=== PATIENT | male | born 1980 | race Caucasian/White ===

== ENCOUNTER 2023-06-04 14:36 | Outpatient (OUT) | payer BC, SELFPAY ==
--- NOTE | 2023-06-04 14:43 | ECG_ITS ---
[facility] Test Date: 2023-06-04 Pat Name: Darnell Myers Department: Room: - Gender: Male Monitor Technician: : 1980 Requested By: FRANCESCA SINHA Order Number: [id number] Reading MD: MARLENY MACIAS Measurements Intervals [place] Rate: 65 P: 55 IA: 184 QRS: 36 QRSD: 129 T: 36 QT: 397 QTc: 414 Interpretive Statements SINUS RHYTHM WITH SINUS ARRHYTHMIA POSSIBLE RIGHT VENTRICULAR CONDUCTION DELAY [RSR (QR) IN V1/V2] No previous ECG available for comparison Electronically Signed On 06-05-2023 5:58:29 EDT by MARLENY MACIAS
[2023-06-04 15:35] LABS: Basophils Percent Auto 0.5 % (0.2-2.0); Eosinophils Absolute Auto 0.1 10^3/uL (0.0-0.7); Eosinophils Percent Auto 1.3 % (0.9-7.0); Hematocrit 40.1 % (42.0-54.0); Hemoglobin 13.6 g/dL (14.0-18.0); Immature Granulocytes Abs Auto 0.03 10^3/uL (0.00-0.03); Immature Granulocytes Pct Auto 0.5 % (0.0-0.5); Lymphocytes Percent Auto 31.8 % (20.5-60.0); Mean Corpuscular HGB Conc 33.9 g/dL (29.9-35.2); Mean Corpuscular Hemoglobin 29.9 pg (25.9-34.0); Mean Corpuscular Volume 88.1 fL (80.0-94.0); Mean Platelet Volume 10.3 fL (9.5-13.5); Monocytes Absolute Auto 0.6 10^3/uL (0.3-0.8); Monocytes Percent Auto 8.8 % (1.7-12.0); Neutrophils Absolute Auto 3.6 10^3/uL (1.4-6.5); Neutrophils Percent Auto 57.1 % (43.0-75.0); Platelet Count 230 10^3/uL (150-450); Red Blood Count 4.55 10^6/uL (4.70-6.10); White Blood Count 6.4 10^3/uL (4.0-11.0)
[2023-06-04 16:06] LABS: Anion Gap 10.7; BUN Creatinine Ratio 16.5; Calcium 8.3 mg/dL (8.5-10.1); Carbon Dioxide 26.2 mmol/L (21.0-32.0); Chloride 105 mmol/L (98-107); Estimated GFR (African America >60 (>=60); Estimated GFR (Non-African Ame >60 (>=60); Glucose 112 mg/dL (74-106); Potassium 3.9 mmol/L (3.5-5.1); Sodium 138 mmol/L (136-145)
[2023-06-04 16:18] LABS: INR 0.98; Partial Thromboplastin Time 33.6 sec (22.3-36.2); Prothrombin Time 10.4 sec (9.0-11.6)
== END 2023-06-04 14:37 | disposition home or self-care (01) ==
LOC: PST 14:40
PROVIDERS: PCP Family Medicine; Visit Provider Urology
DX: Z01.812 Encounter for preprocedural laboratory examination (principal); Z01.810 Encounter for preprocedural cardiovascular examination; R33.9 Retention of urine, unspecified; N40.0 Benign prostatic hyperplasia without lower urinary tract symptoms; R80.9 Proteinuria, unspecified
CPT/HCPCS: 36415; 80048; 85025; 85610; 85730; 93005

== ENCOUNTER 2023-06-11 08:47 | Day surgery (SDC) | payer BC, SELFPAY ==
[2023-06-04 14:53] VITALS: BP 128/71; PULSE 71; RESP 18; TEMP 36.5; O2SAT 95; BMI 40.0
[2023-06-11] VITALS (10 sets, daily range): BP systolic 118–148; BP diastolic 73–97; PULSE 48–64; RESP 14–18; TEMP 36.2–36.4; O2SAT 94–697; BMI 41.7
[2023-06-11] MEDS: LACTATED RINGER'S SOLUTION 1,000 ML 50 ML IV ×2 (09:13→11:17)
[2023-06-11 09:17] LABS: Amphetamine Screen Urine NEGATIVE (NEGATIVE); Barbiturates Screen Urine NEGATIVE (NEGATIVE); Benzodiazepines Screen Urine NEGATIVE (NEGATIVE); Buprenorphine Screen Urine POSITIVE (NEGATIVE); Cannabinoid Screen Urine NEGATIVE (NEGATIVE); Cocaine Screen Urine NEGATIVE (NEGATIVE); Methadone Screen Urine NEGATIVE (NEGATIVE); Methamphetamines Screen Urine NEGATIVE (NEGATIVE); Opiate Screen Urine NEGATIVE (NEGATIVE); Oxycodone Screen Urine NEGATIVE (NEGATIVE); Phencyclidine Screen Urine NEGATIVE (NEGATIVE); Tricyclic Antidepressant Urine NEGATIVE (NEGATIVE)
[2023-06-11] MEDS: CEFAZOLIN SODIUM/DEXTROSE,ISO 1 GM/50 ML IV.SOLN IV (10:47)
--- NOTE | 2023-06-11 11:44 | PM.URSON ---
Urology Surgery Operative Note Operative Note Procedure Date: 06/11/23 Time Out Performed: yes Pre-op Diagnosis: presumed recurrent urethral stricture Post-op Diagnosis: same plus recurrent urethral stricture Procedures performed: #1. Cystoscopy. #2. Optical internal urethrotomy #3.urethral dilation with Doty sounds to 30 [place]. Anesthesia: other (Gen. by LMA) Primary Surgeon: Earnest Doshi Complications: none Estimated blood loss (mL): 10 Findings: recurrent, thick bulbar urethral stricture approximately 1.5-2 cm Specimens: non- Drains: 20 [place] Aguiar catheter Indications for Procedures: this gentleman has a presumed recurrent urethral stricture. He has been on maximal medications and has not obtained much of any benefit from those. Of note is that in 2009 he had a bulbar urethral stricture incised and opened up and he did well since then until the last 6-12 months. He now presents for cystoscopy and possible OIU and UD under anesthesia. He has signed an informed consent after risks were explained to him. Some of these risks include bleeding, infection, anesthesia, urinary incontinence and recurrence to name a few. Detailed description of Procedure: The patient was brought to the operating room and placed on the operating room table in the supine position. SCDs were placed on the lower extremities and turned on and functioning during the entire case. Timeout was done by all parties in the room. We all agreed upon the patient's identification and the planned procedures for this patient. Genn. anesthesia was then administered. The patient was then repositioned into the modified dorsal lithotomy position. All pressure points were satisfactorily padded. Genitalia were sterilely prepped and draped in usual fashion.I started by passing a 22 [place] Olympus cystoscope per urethra and I could clearly see an extremely narrow and somewhat thickened stricture in the bulb of the urethra. I then removed the cystoscope and then passed the urethrotome with a 0 degree lens and a straight knife through the urethra and into the stricture. I then passed a Glidewire through the side-port and cannulated the opening and guided into the bladder. I then was able to extend the knife and cut the stricture in a couple locations in the usual fashion and thus opened it up. It was indurated. It was at least 1-1/2-2 cm in size. I then was able to get the scope into the bladder. An endoscopy in the bladder showed no evidence of any tumors or stones. There was inflammatory debris on the base of the bladder presumedly from incomplete emptying. I brought the scope back to the area of interest and further opened up the stricture without causing bleeding. The guidewire was passed back into the bladder and the scope was removed. I then used the 28 and 30 [place] Doty sound and dilated the area. I then removed the wire and passed a 20 [place] Aguiar catheter into the bladder. 10 mL of fluid was placed in the balloon. It drained clear. He was then transferred to a [facility] bed and wheeled to PACU in stable condition. He'll be discharged to home later today with a prescription for doxycycline 100 mg twice a day for 7 days.
== END 2023-06-11 12:46 | disposition home or self-care (01) ==
PROVIDERS: PCP Family Medicine; Visit Provider Urology
PROC: (CPT 52275; principal; 2023-06-11 09:50)
DX: N35.912 Unspecified bulbous urethral stricture, male (principal); N40.0 Benign prostatic hyperplasia without lower urinary tract symptoms; R33.9 Retention of urine, unspecified; R80.9 Proteinuria, unspecified; Z79.899 Other long term (current) drug therapy; Z68.41 Body mass index [BMI] 40.0-44.9, adult; E66.01 Morbid (severe) obesity due to excess calories
CPT/HCPCS: 52275; 36415; 80307; J2704

== ENCOUNTER 2023-10-13 10:21 | Outpatient (REF) | payer BC, SELFPAY ==
[2023-10-13 11:34] LABS: SARS-CoV-2 Ag NEGATIVE (NEGATIVE)
[2023-10-13 16:03] LABS: SARS-CoV-2 NAA NOT DETECTED (NOT DETECTE)
== END 2023-10-13 10:22 | disposition home or self-care (01) ==
LOC: LAB 10:21
PROVIDERS: PCP Family Medicine; Visit Provider Family Medicine
DX: R05.9 Cough, unspecified (principal); R09.81 Nasal congestion
CPT/HCPCS: 87635; 87811

== ENCOUNTER 2024-01-16 09:21 | Outpatient (OUT) | payer BC, SELFPAY ==
--- OUTSIDE RECORDS SUMMARY | 2024-01-16 09:25 | XMS_ITS | CCD ---
Author Name Unknown Address [address] [place] [address] Organization [facility] Care Team Providers Care Chrome Worker Name Role Phone Marleny Cunningham Primary Care Physician COLLEEN, DR FARMER Admitting Unavailable MARCO ANTONIOY, DR FARMER Attending Unavailable COLLEEN, DR FARMER Primary Care Unavailable MARCO ANTONIOY, DR FARMER Consulting Unavailable HOY, DR FARMER Admitting Unavailable HOY, DR FRAMER Attending Unavailable HOY, DR FARMER Primary Care Unavailable MARCO ANTONIOY, DR FARMER Consulting Unavailable DOSHI, Earnest Ahumada Attending Unavailable DOSHI, Earnest Ahumada Admitting Unavailable DOSHI, Earnest Ahumada Attending Unavailable DOSHI, Earnest Ahumada Attending Unavailable Hoy, Marleny Referring Unavailable DOSHI, Earnest Ahumada Attending Unavailable DOSHI, Earnest Ahumada Attending Unavailable DOSHI, Earnest Ahumada Attending Unavailable DOSHI, Earnest Ahumada Attending Unavailable DOSHI, Earnest Ahumada Referring Unavailable DOSHI, Earnest Ahumada Admitting Unavailable DOSHI, Earnest Ahumada Attending Unavailable Allergies Allergy Classification Reported Allergen(s) Allergy Type Date of Onset Reaction(s) Facility (6 sources) Latex; Translations: [Latex] Allergy to substance Swelling (finding) [facility] Medications Current Medications Medication Drug Class(es) Dates Sig (Normalized) Sig (Original) 24 hr alfuzosin hydrochloride 10 mg extended release oral tablet (1 source) alpha-Adrenergic Odalis Start: 10-21-2022 take 1 tablet by mouth once daily alfuzosin 10 mg ER Tab 10 mg = 1 tab(s), Oral, Daily, # 30 tab(s), Refills(s) 4, Pharmacy: [facility]/pharmacy #[id number], 180, cm, 10/21/22 9:12:00 EST, Height/Length Dosing, 141.5, kg, 10/21/22 9:12:00 EST, Weight Dosing Start Date: 10/21/22 Status: Ordered Suboxone (5 sources) Partial Opioid Agonist, Opioid Antagonist Start: 10-21-2022 Suboxone SubLingual, Daily Start Date: 10/21/22 Status: Ordered dutasteride 0.5 mg oral capsule (1 source) 5-alpha Reductase Inhibitor Start: 03-03-2023 take 1 capsule by mouth once daily dutasteride 0.5 mg Cap 0.5 mg = 1 cap(s), Oral, Daily, # 30 cap(s), Refills(s) 2, Pharmacy: [facility]/pharmacy #[id number], 180, cm, 01/23/23 9:31:00 EST, Height/Length Dosing, 141, kg, 01/23/23 9:31:00 EST, Weight Dosing Start Date: 03/03/23 Status: Ordered Phentermine (5 sources) Sympathomimetic Amine Anorectic Start: 10-21-2022 take 1 mg by mouth once daily Adipex-P mg, Oral, Daily Start Date: 10/21/22 Status: Ordered Problems Active Problems Problem Classification Problem Date Documented Da te Episodic/Chronic Diabetes mellitus without complication (1 source) Hyperglycemia, unspecified; Translations: [HYPERGLYCEMIA UNSPECIFIED] Onset: 11-01-2022 Episodic Genitourinary symptoms and ill-defined conditions (18 sources) Proteinuria; Translations: [Proteinuria, unspecified] Onset: 10-21-2022 Episodic Hyperplasia of prostate (8 sources) Benign prostatic hypertrophy without outflow obstruction; Translations: [Benign prostatic hyperplasia without lower urinary tract symptoms] Onset: 10-21-2022 Chronic Malaise and fatigue (1 source) Other fatigue; Translations: [OTHER FATIGUE] Onset: 11-01-2022 Episodic Other diseases of bladder and urethra (1 source) Urethral stricture; Translations: [Unspecified bulbous urethral stricture, male] Onset: 08-17-2023 Episodic Other screening for suspected conditions (not mental disorders or infectious disease) (1 source) Encounter for screening for malignant neoplasm of prostate; Translations: [Screening for malignant neoplasm done] Onset: 01-23-2023 Episodic Unclassified (3 sources) COUGH, UNSPECIFIED; Translations: [COUGH, UNSPECIFIED] Onset: 05-30-2022 Unclassified (1 source) Male bulbous urethral stricture 08-17-2023 Viral infection (1 source) COVID-19; Translations: [COVID-19] Onset: 05-30-2022 Past or Other Problems Problem Classification Problem Date Documented Da te Episodic/Chronic Unclassified (1 source) COUGH, UNSPECIFIED; Translations: [COUGH, UNSPECIFIED] Onset: 05-27-2022 Results Test Name Value Interpretation Reference Range Facility Patient Educationon 08-17-20 Patient Education Urology Urethrotomy Urethrotomy is a surgery to treat a section of the urethra that is too narrow (urethral stricture). The urethra is the part of the body that drains urine from the bladder out of the body. Urethral stricture makes it difficult or painful to urinate, and it can increase your risk of having more frequent urinary tract infections (UTIs). The goal of surgery is to open the urethral stricture and restore the normal flow of urine. Urethrotomy is performed by passing a thin tube with a light and tiny camera on the end (cystoscope) into the urethra. An instrument is used to cut the stricture, which widens the urethra. Tell a health care provider about: ? Any allergies you have. ? All medicines you are taking, including vitamins, herbs, eye drops, creams, and ckxk-jjy-abituso medicines. ? Any problems you or family members have had with anesthetic medicines. ? Any blood disorders you have. ? Any surgeries you have had. ? Any medical conditions you have. ? Whether you are or may be . What are the risks? Generally, this is a safe procedure. However, problems may occur, including: ? Infection. ? Bleeding. ? Damage to nearby structures or organs. ? Urethral stricture coming back after surgery. ? Inability to get or keep an erection (erectile dysfunction) in men. ? Blood clots. What happens before the procedure? Staying hydrated Follow instructions from your health care provider about hydration, which may include: ? Up to 2 hours before the procedure ? you may continue to drink clear liquids, such as water, clear fruit juice, black coffee, and plain tea. Eating and drinking restrictions Follow instructions from your health care provider about eating and drinking, which may include: ? 8 hours before the procedure ? stop eating heavy meals or foods, such as meat, fried foods, or fatty foods. ? 6 hours before the procedure ? stop eating light meals or foods, such as toast or cereal. ? 6 hours before the procedure ? stop drinking milk or drinks that contain milk. ? 2 hours before the procedure ? stop drinking clear liquids. Medicines Ask your health care provider about: ? Changing or stopping your regular medicines. This is especially important if you are taking diabetes medicines or blood thinners. ? Taking medicines such as aspirin and ibuprofen. These medicines can thin your blood. Do not take these medicines unless your health care provider tells you to take them. ? Taking dmmf-bvd-dggpydy medicines, vitamins, herbs, and supplements. Tests You will have an exam or testing, including: ? A complete physical exam. ? Blood or urine tests. ? X-ray and electrocardiogram, or ECG. General instructions ? Ask your health care provider what steps will be taken to help prevent infection. These may include: ? Washing your genital area with a germ-killing soap. ? Taking antibiotic medicine. ? You may be asked to shower with a germ-killing soap. ? Plan to have someone take you home from the hospital or clinic. ? If you will be going home right after the procedure, plan to have someone with you for 24 hours. What happens during the procedure? ? An IV will be inserted into one of your veins. ? You will be given one or more of the following: ? A medicine to help you relax (sedative). ? A medicine to make you fall asleep (general anesthetic). ? A medicine that is injected into your spine to numb the area below and slightly above the injection site (spinal anesthetic). ? The cystoscope will be inserted into the urethra. ? An incision will be made in the urethral stricture with a knife or a laser. This incision will allow urine to pass through the stricture. ? A thin, flexible tube (catheter) may be inserted through your urethra and into your bladder to hold the incision open while it heals. The catheter will help drain your urine. ? A bandage (dressing) may be placed over the opening of your urethra. The procedure may vary among health care providers and hospitals. What happens after the procedure? ? Your blood pressure, heart rate, breathing rate, and blood oxygen level will be monitored until you leave the hospital or clinic. ? You will continue to have a catheter draining your urine. The catheter may be left in for a few days or weeks, depending on the size of the stricture. ? You will be shown how to care for your catheter. ? You may have some blood leaking from around the catheter when you urinate. ? Do not drive for 24 hours if you were given a sedative during the procedure. ? You may have to wear compression stockings. These stockings help to prevent blood clots and reduce swelling in your legs. Summary ? Urethrotomy is a surgery to treat a section of the urethra that is too narrow (urethral stricture). ? This procedure is done by passing a thin tube with a light and tiny camera on the end (c (more content not included)... Normal [facility] Reminderson 08-17-2023 Reminders - From: Cally Menchaca To: [facility] - Dana Doshi; Cc: Cally Menchaca; Sent: 08/17/2023 17:31:47 EDT Show up: 04/23/2024 17:31:00 EDT Subject: Cysto/UD Due Date/Time: 05/09/2024 17:31:00 EDT Reminder/Recall Patient needs Cysto/UD due in May 2024 Normal [facility] Urology Office/Clinic Noteon 08-17-2023 Urology Office/Clinic Note Chief Complaint BPH HPI Staff 42 yo male here for 2 month f/u to cysto/urethrotomy, UD done 06/11/23. Previous Dx: BPH, incomplete bladder emptying, proteinuria. S/p Cysto done 02/07/10. Pt states that he has had great relief since his procedure. His stream is much better. Dysuria: no Incomplete bladder emptying: no Hematuria: no Frequency: no Urgency: no Nocturia: pt is not getting up now Stream: good no straining Leaking: no Post void dripping: no Wearing pads/ Depends: no Urge incontinence: no Stress incontinence: no Incontinence without Sensory Awareness: no Abdominal pain: pt is having a little discomfort right sided when he stands. He is concerned that he may be getting a hernia. Flank pain: muscle pain Sexual complaints: no History of Present Illness Tests reviewed: reviewed UA, op note I have reviewed the previous health record information and history for this patient from Dr. Doshi. I have reviewed and verified the staff HPI to be accurate for this encounter. There have been no associated fever, chills, flank pain, or blood in the urine. Denies any urinary infections since last encounter. Review of Systems PHQ Score Initial Depression Screen Score: 0 ROS - Provider Constitutional: denies weight loss, denies hot flashes. Eyes: denies eye problems. Gastrointestinal: denies nausea, denies vomiting. Cardiovascular: denies chest pain or angina. Integumentary: no dryness Musculoskeletal: denies musculoskeletal symptoms. ENMT: denies otolaryngeal symptoms. Respiratory: no shortness of breath. Heme/Lymph: denies easy bleeding tendency, denies easy bruising tendency. Psychiatric: no confusion, no anxiety. Genitourinary: See HPI. Physical Exam Vitals & Measurements HR: 63(Peripheral) RR: 16 BP: 138/82 HT: 71 in HT: 180 cm WT: 140 kg WT: 308 lb BMI: 43.21 General Appearance: alert, no distress, well nourished, well developed male. Genitourinary: normal scrotum, normal testes, normal urethra, normal epididymis, normal vas deferens/spermatic cord. Flank Pain: none. Bladder: nonpalpable. Assessment/Plan 1. Bulbous urethral stricture (N35.912: Unspecified bulbous urethral stricture, male) S/p cysto, urethrotomy, UD with Doty sounds 06/11/23. UA today negative for blood and infection. Great relief since procedure, stream is much improved. Previous dilation 2009. Discussed maintenance UD to prevent recurrent strictures. -Pt knows to monitor for recurrent stricture sx and notify office if UD is needed sooner. -Will schedule 1 yr cysto with UD. The procedure risks, benefits, details, and treatment alternatives have been discussed with the patient. These include bleeding, infection, recurrent scar in over 50%, need for repeat dilation or other procedures, no symptom relief with dilation, among others. Full informed consent has been obtained. Will order Local anesthesia. 2. BPH (benign prostatic hyperplasia) (N40.0: Benign prostatic hyperplasia without lower urinary tract symptoms) Stopped taking Dutasteride 0.5 mg qd prior to surgery since there was no improvement in sx. Follow-up With When Contact Information ERNESTINE HEARD, Earnest Ahumada, URL [facility] [address], [place] [address]- [phone] Additional Instructions: Will schedule 1 yr cysto with UD Patient Education Urethrotomy I, Madeline Valente, personally scribed for Dr. Doshi on 08/17/2023 17:27:01. . Documentation recorded by the scribe, Madeline Valente, accurately reflects the services(s) I performed and decisions made by me. Authenticated by Dr. Doshi on 08/17/2023 17:31:22. Problem List/Past Medical History Ongoing BPH (benign prostatic hyperplasia) Bulbous urethral stricture Incomplete bladder emptying Proteinuria Historical No qualifying data Procedure/Surgical History Cystoscopy (06/11/2023), Cystoscopy (02/07/2010). Medications Adipex-P, Oral, Daily dutasteride 0.5 mg Cap, 0.5 mg= 1 cap(s), Oral, Daily, 2 refills Suboxone, SubLingual, Daily Vesicare 10 mg Tab, 10 mg= 1 tab(s), Oral, Daily Allergies Latex (Swelling) Social History Tobacco Never (less than 100 in lifetime) Tobacco Use:. Never Smokeless Tobacco Use:., 10/21/2022 Family History Diabetes mellitus: Father. Hypertension: Father. Primary malignant neoplasm of female breast: Mother. Stroke: Father. Lab Results Ambulatory Point of Care Results Bilirubin Urine Dipstick: Negative (08/17/23 16:38:00) Blood Urine Dipstick: Negative (08/17/23 16:38:00) Glucose Urine Dipstick: Negative (08/17/23 16:38:00) Ketones Urine Dipstick: Negative (08/17/23 16:38:00) Leukocytes Urine Dipstick: Negative (08/17/23 16:38:00) Nitrite Urine Dipstick: Negative (08/17/23 16:38:00) Protein Urine Dipstick: 1+ (30 mg/dl) (08/17/23 16:38:00) Specific [place] Urine Dipstick: 1.025 (08/17/23 16:38:00) Urine Appearance Urine Dipstick: Clear (08/17/23 (more content not included)... Normal [facility] Comment on above: Result Comment: Elec tronically Signed By: Earnest DOSHI MD\.[place]\Date and Time Signed: 08/17/23 17:31 EDT\.br\Electronically Co-Signed By: Madeline Valente\.br\Date and Time Co-Signed: 08/17/23 17:27 EDT Ambulatory Visit Summaryon 0 06-15-2023 Ambulatory Visit Summary ANNA CAN :1980 Visit Date:06/15/2023 Ambulatory Visit Instructions Your Care Team Attending Physician - ERNESTINE HEARD, Earnest Ahumada Primary Care Physician - Marleny Cunningham MD This Is Your Medications List buprenorphine-naloxone (Suboxone) dutasteride (dutasteride 0.5 mg Cap) phentermine (Adipex-P) solifenacin (Vesicare 10 mg Tab) Procedures Performed Cystoscopy (02/07/2010). What to do next Scheduled Follow-Up Appointments Thursday 3:45 PM EDT With: ERNESTINE HEARD, Earnest Ahumada Where: [facility] Lab Reportson 06-12-2023 Lab Reports [id number]#1.00C D:127 Normal [facility] Operative Reporton Operative Report [id number] D:127 [facility] ECG 12-Leadon 06-05-2023 ECG 12-Lead [id number]#1.00C D:127 Normal [facility] Lab Reportson 06-05-2023 Lab Reports [id number] D:127 [facility] Consent for Procedure/Surger yon 06-04-2023 Consent for Procedure/Surgery [id number] D:127 [facility] IntraOperative Documentson 0 06-04-2023 IntraOperative Documents [id number]#1.00C D:127 Normal [facility] Ambulatory Visit Summaryon 0 05-22-2023 Ambulatory Visit Summary ANNA CAN :1980 Visit Date:05/22/2023 Ambulatory Visit Instructions Your Diagnosis BPH (benign prostatic hyperplasia) Incomplete bladder emptying Proteinuria Tests Performed Urnls Dip Stick Auto w/o Microscopy POC [id number] Your Care Team Attending Physician - ERNESTINE HEARD, Earnest Ahumada Primary Care Physician - Marleny Cunningham MD This Is Your Medications List dutasteride (dutasteride 0.5 mg Cap) Contact prescribing physician if questions or concerns buprenorphine-naloxone (Suboxone) phentermine (Adipex-P) Procedures Performed Cystoscopy (02/07/2010). Discharge Vitals Heart Rate (Peripheral) 100 Respiratory Rate 16 Blood Pressure 140/88 Height 180 cm Height 71 in Weight 140 kg Weight 308 lb BMI 43.21 What to do next You Need to Schedule the Following Appointments Follow Up with ERNESTINE HEARD, JACKIE Ty When: Comments: Will schedule procedure Where: [address] [place] [address] Medications What How Much When Instructions Unchanged dutasteride (dutasteride 0.5 mg Cap) 1 Capsules By Mouth Every day Unchanged buprenorphine-naloxone (Suboxone) Sublingual Every day Contact prescribing physician if questions or concerns Unchanged phentermine (Adipex-P) By Mouth Every day Contact prescribing physician if questions or concerns Test Results Urnls Dip Stick Auto w/o Microscopy POC [id number] (05/22/2023) Bilirubin Urine Dipstick - Negative Blood Urine Dipstick - 3+ Large Glucose Urine Dipstick - Negative Ketones Urine Dipstick - Negative Leukocytes Urine Dipstick - Negative Nitrite Urine Dipstick - Negative Protein Urine Dipstick - Trace Specific [place] Urine Dipstick - 1.020 Urine Appearance Urine Dipstick - Clear Urine Color Urine Dipstick - Felicitas Urobilinogen Urine Dipstick - Normal 0.2-1 EU/dl pH Urine Dipstick - 7 Allergies Latex (Swelling) Problems Ongoing - Any problem that you are currently receiving treatment for. BPH (benign prostatic hyperplasia) Incomplete bladder emptying Proteinuria [employer] Benign Prostatic Hyperplasia Benign prostatic hyperplasia (BPH) is an enlarged prostate gland that is caused by the normal aging process. The prostate may get bigger as a man gets older. The condition is not caused by cancer. The prostate is a walnut-sized gland that is involved in the production of semen. It is located in front of the rectum and below the bladder. The bladder stores urine. The urethra carries stored urine out of the body. An enlarged prostate can press on the urethra. This can make it harder to pass urine. The buildup of urine in the bladder can cause infection. Back pressure and infection may progress to bladder damage and kidney (renal) failure. What are the causes? This condition is part of the normal aging process. However, not all men develop problems from this condition. If the prostate enlarges away from the urethra, urine flow will not be blocked. If it enlarges toward the urethra and compresses it, there will be problems passing urine. What increases the risk? This condition is more likely to develop in men older than 50 years. What are the signs or symptoms? Symptoms of this condition include: ? Getting up often during the night to urinate. ? Needing to urinate frequently during the day. ? Difficulty starting urine flow. ? Decrease in size and strength of your urine stream. ? Leaking (dribbling) after urinating. ? Inability to pass urine. This needs immediate treatment. ? Inability to completely empty your bladder. ? Pain when you pass urine. This is more common if there is also an infection. ? Urinary tract infection (UTI). How is this diagnosed? This condition is diagnosed based on your medical history, a physical exam, and your symptoms. Tests will also be done, such as: ? A post-void bladder scan. This measures any amount of urine that may remain in your bladder after you finish urinating. ? A digital rectal exam. In a rectal exam, your health care provider checks your prostate by putting a lubricated, gloved finger into your rectum to feel the back of your prostate gland. This exam detects the size of your gland and any abnormal lumps or growths. ? An exam of your urine (urinalysis). ? A prostate specific antigen (PSA) screening. This is a blood test used to screen for prostate cancer. ? An ultrasound. This test uses sound waves to electronically produce a picture of your prostate gland. Your health care provider may refer you to a specialist in kidney and prostate diseases (urologist). How is this treated? Once symptoms begin, your health care provider will monitor your condition (active surveillance or watchful waiting). Treatment for this condition will depend on the severity of your condition. Treatment may include: ? Observation and yearly exams. This may be the only (more content not included)... Normal [facility] Consent for Procedure/Surger yon 05-22-2023 Consent for Procedure/Surgery [id number] D:127 Normal [facility] Patient Educationon 05-22-20 Patient Education Urology Benign Prostatic Hyperplasia Benign prostatic hyperplasia (BPH) is an enlarged prostate gland that is caused by the normal aging process. The prostate may get bigger as a man gets older. The condition is not caused by cancer. The prostate is a walnut-sized gland that is involved in the production of semen. It is located in front of the rectum and below the bladder. The bladder stores urine. The urethra carries stored urine out of the body. An enlarged prostate can press on the urethra. This can make it harder to pass urine. The buildup of urine in the bladder can cause infection. Back pressure and infection may progress to bladder damage and kidney (renal) failure. What are the causes? This condition is part of the normal aging process. However, not all men develop problems from this condition. If the prostate enlarges away from the urethra, urine flow will not be blocked. If it enlarges toward the urethra and compresses it, there will be problems passing urine. What increases the risk? This condition is more likely to develop in men older than 50 years. What are the signs or symptoms? Symptoms of this condition include: ? Getting up often during the night to urinate. ? Needing to urinate frequently during the day. ? Difficulty starting urine flow. ? Decrease in size and strength of your urine stream. ? Leaking (dribbling) after urinating. ? Inability to pass urine. This needs immediate treatment. ? Inability to completely empty your bladder. ? Pain when you pass urine. This is more common if there is also an infection. ? Urinary tract infection (UTI). How is this diagnosed? This condition is diagnosed based on your medical history, a physical exam, and your symptoms. Tests will also be done, such as: ? A post-void bladder scan. This measures any amount of urine that may remain in your bladder after you finish urinating. ? A digital rectal exam. In a rectal exam, your health care provider checks your prostate by putting a lubricated, gloved finger into your rectum to feel the back of your prostate gland. This exam detects the size of your gland and any abnormal lumps or growths. ? An exam of your urine (urinalysis). ? A prostate specific antigen (PSA) screening. This is a blood test used to screen for prostate cancer. ? An ultrasound. This test uses sound waves to electronically produce a picture of your prostate gland. Your health care provider may refer you to a specialist in kidney and prostate diseases (urologist). How is this treated? Once symptoms begin, your health care provider will monitor your condition (active surveillance or watchful waiting). Treatment for this condition will depend on the severity of your condition. Treatment may include: ? Observation and yearly exams. This may be the only treatment needed if your condition and symptoms are mild. ? Medicines to relieve your symptoms, including: ? Medicines to shrink the prostate. ? Medicines to relax the muscle of the prostate. ? Surgery in severe cases. Surgery may include: ? Prostatectomy. In this procedure, the prostate tissue is removed completely through an open incision or with a laparoscope or robotics. ? Transurethral resection of the prostate (TURP). In this procedure, a tool is inserted through the opening at the tip of the penis (urethra). It is used to cut away tissue of the inner core of the prostate. The pieces are removed through the same opening of the penis. This removes the blockage. ? Transurethral incision (TUIP). In this procedure, small cuts are made in the prostate. This lessens the prostate's pressure on the urethra. ? Transurethral microwave thermotherapy (TUMT). This procedure uses microwaves to create heat. The heat destroys and removes a small amount of prostate tissue. ? Transurethral needle ablation (TUNA). This procedure uses radio frequencies to destroy and remove a small amount of prostate tissue. ? Interstitial laser coagulation (ILC). This procedure uses a laser to destroy and remove a small amount of prostate tissue. ? Transurethral electrovaporization (TUVP). This procedure uses electrodes to destroy and remove a small amount of prostate tissue. ? Prostatic urethral lift. This procedure inserts an implant to push the lobes of the prostate away from the urethra. Follow these instructions at home: ? Take otiu-wah-voowoqr and prescription medicines only as told by your health care provider. ? Monitor your symptoms for any changes. Contact your health care provider with any changes. ? Avoid drinking large amounts of liquid before going to bed or out in public. ? Avoid or reduce how much caffeine or alcohol you drink. ? Give yourself time when you urinate. ? Keep all follow-up visits. This is important. Contact a health care provider if: ? You have unexplained back pain. ? Your symptoms do not get better with treatment. ? You develop side effects from the medicine (more content not included)... Normal [facility] Urology Office/Clinic Noteon 05-22-2023 Urology Office/Clinic Note Chief Complaint possible UD unable to place catheter for urodynamics HPI Staff Pt was scheduled for urodynamics but they were unable to place a urethral catheter in him so the procedure was abandoned. Previous dx of BPH, incomplete b;adder emptying and proteinuria. Pt feels his bladder is functioning fine but he feels he has scar tissue in his urethra again. He states that in 2009 he had a cysto to open up his urethra and was fine for many years after but now he feels he is having those same symptoms. Dysuria: no Incomplete bladder emptying: states he empties but it takes a while Hematuria: no Frequency: every couple of hours Urgency: no Nocturia: 2-3x Stream: some hesitation and has straining all the time Leaking: no Post void dripping: no Urge incontinence: no Stress incontinence: no Incontinence without Sensory Awareness: no Abdominal pain: no Flank pain: no Sexual complaints: no History of Present Illness Tests Reviewed: Reviewed UA. I have reviewed the previous health record information and history for this patient from Dr Doshi I have reviewed and verified the staff HPI to be accurate for this encounter. There have been no associated fever, chills, flank pain, or blood in the urine. Denies any urinary infections since last encounter. Review of Systems PHQ Score Initial Depression Screen Score: 0 ROS - Provider Constitutional: denies weight loss, denies hot flashes. Eyes: denies eye problems. Gastrointestinal: denies nausea, denies vomiting. Cardiovascular: denies chest pain or angina. Integumentary: no dryness Musculoskeletal: denies musculoskeletal symptoms. ENMT: denies otolaryngeal symptoms. Respiratory: no shortness of breath. Heme/Lymph: denies easy bleeding tendency, denies easy bruising tendency. Psychiatric: no confusion, no anxiety. Genitourinary: SEE HPI Physical Exam Vitals & Measurements HR: 100(Peripheral) RR: 16 BP: 140/88 HT: 71 in HT: 180 cm WT: 140 kg WT: 308 lb BMI: 43.21 General Appearance: alert, no distress, well nourished, well developed male. Genitourinary: normal scrotum, normal testes, normal urethra, normal epididymis, normal vas deferens/spermatic cord. Flank Pain: none. Assessment/Plan 1. BPH (benign prostatic hyperplasia) (N40.0: Benign prostatic hyperplasia without lower urinary tract symptoms) Getting up 2-3x/night to void. Unsteady stream. Straining to void. Has tried Alfuzosin 10mg ER in the past-pt stopped taking due to no improvement. Has also tried Tamsulosin 0.4mg 0.4mg BID-pt stopped kiua5yy due to constipation & no improvement in symptoms. P to continue Dutasteride 0.5mg QD therapy given at time of last encounter. 2. Incomplete bladder emptying (R33.9: Retention of urine, unspecified) Unable to insert catheter at time of URO's. Procedure terminated. S/P Cysto/UD 02/07/10. Unable to obtain records due to new EMR system. Discussed possibility of scar tissue collection over time creating stricture. Discussed scheduling Cysto/OIU/UD with Anesthesia. The risks and benefits for cystoscopy/OIU possible UD have been discussed. The risks include bleeding, infection, and irritation of the bladder and urinary channel, among others. The patient, after being informed of procedural details and after questions have been answered, wishes to proceed. Full informed consent has been obtained. Will order General anesthesia. 3. Proteinuria (R80.9: Proteinuria, unspecified) UA today shows TRACE. Has been recommended to discuss with PCP. Follow-up With When Contact Information ERNESTINE HEARD, Earnest Ahumada, URL [address] [place] [address] [place] [address] Additional Instructions: Will schedule procedure Patient Education Benign Prostatic Hyperplasia I, Margaret Murcia, personally scribed for Dr. Doshi on 05/22/2023 10:32:17. . Documentation recorded by the scribe, Margaret Murcia, accurately reflects the services(s) I performed and decisions made by me. Authenticated by Dr. Doshi on 05/22/2023 10:33:52. Problem List/Past Medical History Ongoing BPH (benign prostatic hyperplasia) Incomplete bladder emptying Proteinuria Historical No qualifying data Procedure/Surgical History Cystoscopy (02/07/2010). Medications Adipex-P, Oral, Daily dutasteride 0.5 mg Cap, 0.5 mg= 1 cap(s), Oral, Daily, 2 refills, Not taking: Pt was told to stop taking it for the urodynamics test and he states that he did and is no longer going to take it because he feels the issue is not his prostate. Suboxone, SubLingual, Daily Allergies Latex (Swelling) Social History Tobacco Never (less than 100 in lifetime) Tobacco Use:. Never Smokeless Tobacco Use:., 10/21/2022 Family History Diabetes mellitus: Father. Hypertension: Father. Primary malignant neoplasm of female breast: Mother. Stroke: Father. Lab Results Test Name Test Result Date/Time Comments PSA Total 0.4 ng/ (more content not included)... [facility] Comment on above: Result Comment: Elec tronically Signed By: ERNESTINE HEARD, Earnest Ahumada\.br\Date and Time Signed: 05/22/23 10:33 EDT\.br\Electronically Co-Signed By: Margaret Murcia MA\.br\Date and Time Co-Signed: 05/22/23 10:32 EDT Consent for Treatmenton 04-24 Consent for Treatment [id number]#[id number] D:127 [facility] Pre-Certification Formon Pre-Certification Form [id number]#[id number] CD:127 [facility] Lab Reportson 02-02-2023 Lab Reports [id number]#1.00C D:127 [facility] Coding Summary.on 01-30-2023 Coding Summary. CD:[id number] Gh0 bWw+PGhlYWQ+ID3DEVGcH06 bsIMrhS4zJ6RDNPyVSszgWI AFUIjIJrKtmjXzHN1iiVWfM XJu IC8+HE5xIKCyPqiyuALgf4X 5tTS1Z77mfx3aOFuwqWM8DG YqBpRafwrls9ehnSc2WKeuB mluOyBt PRJppU86OCC3bY55Th99iVK zmNSuq9nccPi3ImKjKZCkRB S1iEyeQJond9VuYVHmV39cc QRjv9H2 JEDofXzhzJDhCfYtiUO7nS7 fFEeqspusi5qjsjurLqa6ea 60uLSwf4K5cAN4V4CkkyA1L GJvbGQg CgthtLZAfP7rgxbaw4gejkl sMxHhIWOxWYf4AMx7EJBzpQ ebBfEwDQ38STU5OCGwloFyL 2FsLWFs hWrsIvL7t2X8Ok9WV7ESOib gP3WCIZREISomxLP+PC90cj 92M4IvEodfZqv4FVSmZUA7d JA8hC9n VYSbPWymy7B8gVD5A1KlisS fgd8rl7bcHSDzZDniS99rzB Cxp3H2GOCsnNL8CCTgtBypT iBzaG93 Oyc+ITLfyXgss9PiAmgfv3v uy6spyJo4OmhwDQKzejVahG riSLJ0r3OsFp8kSEAgxOC2u IO6vO5c RdXwHxQ3DDnzW257WpEnxSH zAxpnY25kD7FslNM+PHRyPj o8KBWdpZppYS0mS4LjGURdf mctbGVm yGeoVF0lYRNaxmqoKXYagI6 mUWHdW7w9ScKsFwJ7XUbsB4 GxAXSmanvuGg91gL4bUlOuJ xO2MZvl K7NxitP3SXUekIPnVLdsYWK 9K36xi8G0BNBwZOGvIMO5zQ U6fL7piBndqbkafCXhiGufg mVydGlj WEkeKSjeT138NJMsvCjpHmD vZGluZyBEYXRlOiAgMDMvMT AvMjAyMzwvdGQ+ICXdTVN3t WxlPSAn uFHeNRonEc5igHufpZcgVZ1 kAEJlfwplGETttD9iYTHlcU NlaSujQN6aBFEgixldq231J iAxMHB0 PELwaRPoY6OviQ8aPtXrRLR bEKPnX9KefFMrXGmnV049GD elCrH8OIFigrGfA1ZvBZPtk WduOiB0 w0S8Au3Wu0MipftiH7LprTL bYmSbWungPAu2G9GlOqhcvW I+MM90HISjNL36ZLe0IAY7x WxlPSdi YLLdN6WuuN2nRmUqXTIaOCB kOyc+PHRhYmxlIHdpZHRoPS duBXBaOrJfsQxyXW3cBw3gJ GVyLWNv eJhapJWuOaBnw4lqYSSnCYl zOW5pqMcxU7QhtHS2YYSsl3 s8Sw76X92pM8DdzAH+PGNvb EH8gMB0 kX3wNaJzPoP1BVavJ948IaW itPIsRcujm5pij9xjfUn6Jz V7JTQgtvWuxAkeZXP9d9SsC d08I10a IHdpZHRoPSIxNSUiIHZhbGl soi9zpT1jTq1+YEAsrSZ3lG N9hB1aTvFaMjI8YUolO041Z nRvcCIv Sydeg1cnt8inwCy2JtSuPFN czwIptTceOCC6u4SwSh62K6 JrnKhxd8CuEmq3vo56uRBzl 4A3gKU2 M0YjCAYbiuykoXHskGmqFQ1 cXTRlvvacOFMicI7dHIJnJ7 o3DvViKtK1UJkcF0KjccH6B GJvbGQg QWMmdBWPkU2iedgpp6texbi vHrFmQCAsHHm8KVq5WBEpeE jkTwZuGVD2RjJ7WLT7dDOib T0dlWcc xvloeI6yEbi+LCX2fUPuyWX DVK6fHyubzJM+RXOeLMV9sY dmGYepUFYdwA3hUJOnD8o8N iAwLjA1 LTllQ7ZmpaN7NCIhtIDrBTS oyENXcG1difxud6cvsnsfNr TxVKJlBRr3RXw1KBTnqRhqA iBsZWZ0 ZuE8TQE0rXRwhG1mqTxpazo hgQ5hDzf+OdmqtSxqRYC2HF r5D5CxXam3DBTswOloUI2wi GFkZGlu Fy1spKsxpCuvQO9qKMInvnp fv197CePuu8dwGDBuiJYiVW kgUGV4S95oc4V2GYLhIQDzZ VU5zIP4 nK7zmCezgnfwxZKpaFioabY hnEwcRGthMIupE978TQDahM xqLuGsIOe7J0XwDhx0CGFby AixRP4b aJVgYUdbFx0thPnsmFqtYZ6 lTDPlcdyjk316GwHpb4auFU YcsMOzSNdwTOK8A87zw5X2F CMwMDAw NCF7sFJ4yS8acOclxfzhdGR mdDsgdmVydGljYWwtYWxpZ2 34RGEtrWsqWbFqgVo9V9NtJ ql5HGFu uNbqMA9umPTfWZvaSd3rpSg jnLybON8uIRYwtrlxz695Dt Azm6kdSYJzaBTkSDheASN7L 05he2T8 WBVcUCWgEUQ6tTK3pK4ieQy nbjogbGVmdDsgdmVydGljYW wbPBgkQ369QGJauJlwZlQhj GllbnQg DQgkRWz2Z6BrYftovXA+PC9 6CTPqLU42jUDmpFXcj3qdjG u3YgJiLTOxTMJ3lEdmSFebs 3JkZXIt T05zhHJkz7W0FAMofRlbiOQ uPzVuhHH3aH5yASbmhykim9 oqgsaaDqnmi3kkmz33bW22I 29sIHdp ZHRoPSIzMCUiIHZhbGlnbj0 sjX8xTe2+MXQndRO7gNF8jP 3wDIOjGeC4YNtcD002AeBna CIvPjxj u5eyi6iwvMb1LuF7KPMdhvF jwHdaVSZ5g6FaLg00V75iRD dpZHRoPSIyMCUiIHZhbGlnb v1fyY9b Ii8+UHKkvUU9wQR7hD1oYlE qGqF7CGzhZ606LqMbyMQyPm auK37vS2YurPH+TCYhBms9B CBzdHls VL6zeMEgWVrdDl4tYPN1AtL oBoAdHHfeY8FnQRDeqbmglh wvpWO8FEDgSODhqK83Hi6do DogMTBw mGYXxR2fcunup2hmfuilYgS mLNUjALf4JEn5KIMrkMadHl NdRJX9KxN4XAC8mKVyoB1td Glnbjog xL8lQ7JdYISnhcfvHw65rG0 oGpFxSmN9VVfdMbe+Q0xBUF LaOO7IQ7aVVOVRPUO2E7UsS ha4IRWg gEdzVR3xyNMaVQnsYv4hqPr kwDvjCF4oZQSjuoxvCGFfqX 3eNBRlfGUfcAzxWA0rENKsk vros410 BxNyNAG8VSVbdJWjT5ZmtI3 gVmThCQIqHGWyS8DusXGnEO gfD493JMcwGcO9DXTfxjKnF 2FsLWFs kZsbVoZ9y1S6Vb7tMb6sNE5 zJCnlCY10KW44aWVch6O4gI K3B0FaGFUkcubdssywrDW9X DAuMDUw uG63vEPoUUwiNz5ji0P4s59 3JDAgHWZiyY21Dl0fcYvpOX MdtMYPnZ7nphzts1mulozgN zAwMDAw YWc6CHx3SJJupMtyIrGnJPA 8FfD6PCX6nRPsyY7vjAvhvj hjoX0zMtk+ILNdYAWtwmZ4A 4OmOof0 LKLesHklUR0icYCtJFzcAx5 gpOgolBuwYJ1lNGQsqnpzPL UclO7wWTBzgWCohQpiVL8rX TBpbjtm g155HwVbDNM0MHNalQWiI5T rbW6xFvLwMTMsEXQzX3LgfT QjHVabB983GNmeTpN3VAYig hKtF5Bp MGBkrNipBxW8x1Q9Aq9FJGy zUJ04AI79pWIfm7V7sTF7G3 NzJTMhgufhvaamgNF5HMFwK DUwaW47 qSHfYMjzTg4am4L6p712PBF kDRLjsW48Bh6nhTdhMZTcqO YUsH9czygvf0djtwqzCjLvY DAwMDt0 ODd5NWIuwEwpWsMbUVI8RsD 6WHH6oUEsxL8ggTmoccgifF 9wOyc+ZLVpXQFek5Sbv1IlG V51XG41 H6DxHkshmAAbrDG+PHRhYmx lIHdpZHRoPScxMDAlJyBzdH ysLT7zUi5vVQLqELMlfRqgr HNlOiBj b0viRTAhDCfqQD0dqUywO2T ejZV0FUJcf7h2Ka76Y39dA9 JvdXA+XHVesOB1oVN7vQ8iG zAlIiB2 MByqJ231XqUmpVQjHxbom1q gg8jbvZh4UsXuJVHwyiZqcF gtOYS2s5TiRd20L08hSVzjY HRoPSIy KBKlYLZwnDiwsd1qsD5qQx4 +XOUpgHL3fZF8cZ1mAnDmKx V3MCoiQ773VcVcvQRrVuozD 88cK2Xt dXA+PLPnFow5PWTnpCnbTE7 zzVAlAWzpIl2gXOD6NyMkZm KuMWwoJ2YfRBUyhnyklynnq DA6WHCm UFLlwM25Kr7owCemQd5sEGF iKVM6SCVnuSVuM7CkqR5hYn WiSTSfNFPiA7ZfjBUvEIpeM 246IGxl DsH9JUQhobBiM3XxPARkyTj yOuT1q1B5Nd4LtDkdcYDjFR 0nFuMaNJh3W6EmHtw4HCKtd MnmNF9g xICuLLksGx8fwKukaJwdZR0 uZHHbyntsh222FkSge0hpES DhiTQjDZkiSMQ7C44ov9S5I CMwMDAw FUL4rKD3dQ5deUmtxohtvOM mdDsgdmVydGljYWwtYWxpZ2 97GORlzMarLfBBCcm5H1RuM ns1ALAz iWgzON8boKQcINbnCx2hwNb tgRdeTH9hGEImiglbl561Am Jhh0rzYYXwdHYnDKidJOF4D 79gh5L0 MLHhWKMaGNT4gUJ0gN7psHk nbjogbGVmdDsgdmVydGljYW kqPKgpF424HPPjhGexYa5HC vv8I0Bp Lws1TDWeqPjpUY8bgUPsSCh pWl8ulDmveZgdBS7gHYAqfp sqn393YbOld5lfHHOpqTEwN GltZXM7 W46vg5I8GELbTNYnHXP9cJC 7rO0soDzklazkwAHcsPodpx SutXqbRTnkMYwjB507DDUpd DsnPlBh eWVyOjwvdGQ+DO32re51N4B qWnczYbu9CUXeYON4gBO1tI 5bSXDoWAxoq0T3uJA7O8Zaa cYdqc3y b2xs (more content not included)... Normal [facility] Ambulatory Visit Summaryon 0 01-23-2023 Ambulatory Visit Summary ANNA CAN :1980 Visit Date:01/23/2023 Ambulatory Visit Instructions Your Diagnosis BPH (benign prostatic hyperplasia) Incomplete bladder emptying Proteinuria Prostate cancer screening Tests Performed Urnls Dip Stick Auto w/o Microscopy POC 17392 Your Care Team Attending Physician - ERNESTINE HEARD, Earnest Ahumada Primary Care Physician - Marleny Cunningham MD This Is Your Medications List Contact prescribing physician if questions or concerns buprenorphine-naloxone (Suboxone) phentermine (Adipex-P) [Image Removed: STOP]Stop taking these medications alfuzosin (alfuzosin 10 mg ER Tab) tamsulosin (tamsulosin 0.4 mg Cap) Discharge Vitals Heart Rate (Peripheral) 80 Respiratory Rate 16 Blood Pressure 140/88 Height 180 cm Height 71 in Weight 141 kg Weight 310.2 lb BMI 43.52 What to do next Scheduled Follow-Up Appointments Thursday 10:30 AM EDT Where: [facility] Thursday 3:00 PM EDT Where: [facility] You Need to Schedule the Following Appointments Follow Up with ERNESTINE HEARD, Earnest Ahumada, JACKIE When: Where: [address] [place] [address]- Medications What How Much When Instructions Unchanged buprenorphine-naloxone (Suboxone) Every day Contact prescribing physician if questions or concerns Unchanged phentermine (Adipex-P) Every day Contact prescribing physician if questions or concerns What How Much When Comments Stop Taking alfuzosin (alfuzosin 10 mg ER Tab) 1 Tablets By Mouth Every day Stop Taking tamsulosin (tamsulosin 0.4 mg Cap) 1 Capsules By Mouth 2 times a day Test Results Urnls Dip Stick Auto w/o Microscopy POC 09408 (01/23/2023) Bilirubin Urine Dipstick - Negative Blood Urine Dipstick - Negative Glucose Urine Dipstick - Negative Ketones Urine Dipstick - Negative Leukocytes Urine Dipstick - Negative Nitrite Urine Dipstick - Negative Protein Urine Dipstick - 1+ (30 mg/dl) Specific [place] Urine Dipstick - 1.020 Urine Appearance Urine Dipstick - Clear Urine Color Urine Dipstick - Yellow Urobilinogen Urine Dipstick - Normal 0.2-1 EU/dl pH Urine Dipstick - 7.5 Allergies Latex (Swelling) Problems Ongoing - Any problem that you are currently receiving treatment for. BPH (benign prostatic hyperplasia) Incomplete bladder emptying Proteinuria [employer] Benign Prostatic Hyperplasia Benign prostatic hyperplasia (BPH) is an enlarged prostate gland that is caused by the normal aging process and not by cancer. The prostate is a walnut-sized gland that is involved in the production of semen. It is located in front of the rectum and below the bladder. The bladder stores urine and the urethra is the tube that carries the urine out of the body. The prostate may get bigger as a man gets older. An enlarged prostate can press on the urethra. This can make it harder to pass urine. The build-up of urine in the bladder can cause infection. Back pressure and infection may progress to bladder damage and kidney (renal) failure. What are the causes? This condition is part of a normal aging process. However, not all men develop problems from this condition. If the prostate enlarges away from the urethra, urine flow will not be blocked. If it enlarges toward the urethra and compresses it, there will be problems passing urine. What increases the risk? This condition is more likely to develop in men over the age of 50 years. What are the signs or symptoms? Symptoms of this condition include: ? Getting up often during the night to urinate. ? Needing to urinate frequently during the day. ? Difficulty starting urine flow. ? Decrease in size and strength of your urine stream. ? Leaking (dribbling) after urinating. ? Inability to pass urine. This needs immediate treatment. ? Inability to completely empty your bladder. ? Pain when you pass urine. This is more common if there is also an infection. ? Urinary tract infection (UTI). How is this diagnosed? This condition is diagnosed based on your medical history, a physical exam, and your symptoms. Tests will also be done, such as: ? A post-void bladder scan. This measures any amount of urine that may remain in your bladder after you finish urinating. ? A digital rectal exam. In a rectal exam, your health care provider checks your prostate by putting a lubricated, gloved finger into your rectum to feel the back of your prostate gland. This exam detects the size of your gland and any abnormal lumps or growths. ? An exam of your urine (urinalysis). ? A prostate specific antigen (PSA) screening. This is a blood test used to screen for prostate cancer. ? An ultrasound. This test uses sound waves to electronically produce a picture of your prostate gland. Your health care provider may refer you to a specialist in kidney (more content not included)... Normal [facility] Ambulatory Visit Summary ANNA CAN :1980 Visit Date:01/23/2023 Ambulatory Visit Instructions Your Diagnosis BPH (benign prostatic hyperplasia) Incomplete bladder emptying Proteinuria Tests Performed Urnls Dip Stick Auto w/o Microscopy POC 13606 Your Care Team Attending Physician - Earnest DOSHI MD Primary Care Physician - Marleny Cunningham MD This Is Your Medications List Contact prescribing physician if questions or concerns buprenorphine-naloxone (Suboxone) phentermine (Adipex-P) [Image Removed: STOP]Stop taking these medications alfuzosin (alfuzosin 10 mg ER Tab) tamsulosin (tamsulosin 0.4 mg Cap) Discharge Vitals Heart Rate (Peripheral) 80 Respiratory Rate 16 Blood Pressure 140/88 Height 180 cm Height 71 in Weight 141 kg Weight 310.2 lb BMI 43.52 What to do next You Need to Schedule the Following Appointments Follow Up with ERNESTINE HEARD, JACKIE Ty When: Where: [address] [place] [address]- Medications What How Much When Instructions Unchanged buprenorphine-naloxone (Suboxone) Every day Contact prescribing physician if questions or concerns Unchanged phentermine (Adipex-P) Every day Contact prescribing physician if questions or concerns What How Much When Comments Stop Taking alfuzosin (alfuzosin 10 mg ER Tab) 1 Tablets By Mouth Every day Stop Taking tamsulosin (tamsulosin 0.4 mg Cap) 1 Capsules By Mouth 2 times a day Test Results Urnls Dip Stick Auto w/o Microscopy POC 05636 (01/23/2023) Bilirubin Urine Dipstick - Negative Blood Urine Dipstick - Negative Glucose Urine Dipstick - Negative Ketones Urine Dipstick - Negative Leukocytes Urine Dipstick - Negative Nitrite Urine Dipstick - Negative Protein Urine Dipstick - 1+ (30 mg/dl) Specific [place] Urine Dipstick - 1.020 Urine Appearance Urine Dipstick - Clear Urine Color Urine Dipstick - Yellow Urobilinogen Urine Dipstick - Normal 0.2-1 EU/dl pH Urine Dipstick - 7.5 Allergies Latex (Swelling) Problems Ongoing - Any problem that you are currently receiving treatment for. BPH (benign prostatic hyperplasia) Incomplete bladder emptying Proteinuria [employer] Benign Prostatic Hyperplasia Benign prostatic hyperplasia (BPH) is an enlarged prostate gland that is caused by the normal aging process and not by cancer. The prostate is a walnut-sized gland that is involved in the production of semen. It is located in front of the rectum and below the bladder. The bladder stores urine and the urethra is the tube that carries the urine out of the body. The prostate may get bigger as a man gets older. An enlarged prostate can press on the urethra. This can make it harder to pass urine. The build-up of urine in the bladder can cause infection. Back pressure and infection may progress to bladder damage and kidney (renal) failure. What are the causes? This condition is part of a normal aging process. However, not all men develop problems from this condition. If the prostate enlarges away from the urethra, urine flow will not be blocked. If it enlarges toward the urethra and compresses it, there will be problems passing urine. What increases the risk? This condition is more likely to develop in men over the age of 50 years. What are the signs or symptoms? Symptoms of this condition include: ? Getting up often during the night to urinate. ? Needing to urinate frequently during the day. ? Difficulty starting urine flow. ? Decrease in size and strength of your urine stream. ? Leaking (dribbling) after urinating. ? Inability to pass urine. This needs immediate treatment. ? Inability to completely empty your bladder. ? Pain when you pass urine. This is more common if there is also an infection. ? Urinary tract infection (UTI). How is this diagnosed? This condition is diagnosed based on your medical history, a physical exam, and your symptoms. Tests will also be done, such as: ? A post-void bladder scan. This measures any amount of urine that may remain in your bladder after you finish urinating. ? A digital rectal exam. In a rectal exam, your health care provider checks your prostate by putting a lubricated, gloved finger into your rectum to feel the back of your prostate gland. This exam detects the size of your gland and any abnormal lumps or growths. ? An exam of your urine (urinalysis). ? A prostate specific antigen (PSA) screening. This is a blood test used to screen for prostate cancer. ? An ultrasound. This test uses sound waves to electronically produce a picture of your prostate gland. Your health care provider may refer you to a specialist in kidney and prostate diseases (urologist). How is this treated? Once symptoms begin, your health care provider will monitor your condition (active surveillance or watchful waiting). Treatment for this condition will depend on the kelly (more content not included)... Normal [facility] CHEMISTRYOrdered By: SYSTEM SYSTEM on 01-23-2023 Prostate specific Ag [Mass/Vol] 0.4 ng/mL Normal 0.1 - 3.5 ng/mL [facility] Remisol PSA Totalon 01-23-2023 Prostate specific Ag [Mass/Vol] 0.4 ng/mL Normal 0.1-3.5 [facility] Comment on above: Result Comment: The concentration of PSA determined by different manufacturers can vary due to differences in assay methods and reagent specificity. Values obtained from different assay methods cannot be used interchangeably. The methodology used for this result was chemiluminescence using [employer]'s Access [employer] PSA reagent. Performed By: #### 1 [id number] ####[facility] [id number] [place] [address] Patient Educationon 01-24-20 23 Patient Education Urology Benign Prostatic Hyperplasia Benign prostatic hyperplasia (BPH) is an enlarged prostate gland that is caused by the normal aging process and not by cancer. The prostate is a walnut-sized gland that is involved in the production of semen. It is located in front of the rectum and below the bladder. The bladder stores urine and the urethra is the tube that carries the urine out of the body. The prostate may get bigger as a man gets older. An enlarged prostate can press on the urethra. This can make it harder to pass urine. The build-up of urine in the bladder can cause infection. Back pressure and infection may progress to bladder damage and kidney (renal) failure. What are the causes? This condition is part of a normal aging process. However, not all men develop problems from this condition. If the prostate enlarges away from the urethra, urine flow will not be blocked. If it enlarges toward the urethra and compresses it, there will be problems passing urine. What increases the risk? This condition is more likely to develop in men over the age of 50 years. What are the signs or symptoms? Symptoms of this condition include: ? Getting up often during the night to urinate. ? Needing to urinate frequently during the day. ? Difficulty starting urine flow. ? Decrease in size and strength of your urine stream. ? Leaking (dribbling) after urinating. ? Inability to pass urine. This needs immediate treatment. ? Inability to completely empty your bladder. ? Pain when you pass urine. This is more common if there is also an infection. ? Urinary tract infection (UTI). How is this diagnosed? This condition is diagnosed based on your medical history, a physical exam, and your symptoms. Tests will also be done, such as: ? A post-void bladder scan. This measures any amount of urine that may remain in your bladder after you finish urinating. ? A digital rectal exam. In a rectal exam, your health care provider checks your prostate by putting a lubricated, gloved finger into your rectum to feel the back of your prostate gland. This exam detects the size of your gland and any abnormal lumps or growths. ? An exam of your urine (urinalysis). ? A prostate specific antigen (PSA) screening. This is a blood test used to screen for prostate cancer. ? An ultrasound. This test uses sound waves to electronically produce a picture of your prostate gland. Your health care provider may refer you to a specialist in kidney and prostate diseases (urologist). How is this treated? Once symptoms begin, your health care provider will monitor your condition (active surveillance or watchful waiting). Treatment for this condition will depend on the severity of your condition. Treatment may include: ? Observation and yearly exams. This may be the only treatment needed if your condition and symptoms are mild. ? Medicines to relieve your symptoms, including: ? Medicines to shrink the prostate. ? Medicines to relax the muscle of the prostate. ? Surgery in severe cases. Surgery may include: ? Prostatectomy. In this procedure, the prostate tissue is removed completely through an open incision or with a laparoscope or robotics. ? Transurethral resection of the prostate (TURP). In this procedure, a tool is inserted through the opening at the tip of the penis (urethra). It is used to cut away tissue of the inner core of the prostate. The pieces are removed through the same opening of the penis. This removes the blockage. ? Transurethral incision (TUIP). In this procedure, small cuts are made in the prostate. This lessens the prostate's pressure on the urethra. ? Transurethral microwave thermotherapy (TUMT). This procedure uses microwaves to create heat. The heat destroys and removes a small amount of prostate tissue. ? Transurethral needle ablation (TUNA). This procedure uses radio frequencies to destroy and remove a small amount of prostate tissue. ? Interstitial laser coagulation (ILC). This procedure uses a laser to destroy and remove a small amount of prostate tissue. ? Transurethral electrovaporization (TUVP). This procedure uses electrodes to destroy and remove a small amount of prostate tissue. ? Prostatic urethral lift. This procedure inserts an implant to push the lobes of the prostate away from the urethra. Follow these instructions at home: ? Take gxaq-qwy-hullbfe and prescription medicines only as told by your health care provider. ? Monitor your symptoms for any changes. Contact your health care provider with any changes. ? Avoid drinking large amounts of liquid before going to bed or out in public. ? Avoid or reduce how much caffeine or alcohol you drink. ? Give yourself time when you urinate. ? Keep all follow-up visits as told by your health care provider. This is important. Contact a health care provider if: ? You have unexplained back pain. ? Your symptoms do not get better with treatment. ? You d (more content not included)... Normal [facility] U[facility] Office/Clinic Noteon 01-23-2023 Urology Office/Clinic Note Chief Complaint 3 month f/u HPI Staff 3 month f/u. Previous dx of BPH, proteinuria, and incomplete bladder emptying. Pt stopped taking the Alfuzosin after about a month of taking it due to not getting any relief from it and called the office and was started on Tamsulosin 0.4mg BID. He also stopped taking the Tamsulosin. Pt has not been taking it for at the least 2 weeks now. States that it was causing constipation and not giving him the relief that he wanted. Dysuria: no Incomplete bladder emptying: pt states that he is emptying but it takes him a while because of a slow stream Hematuria: no Frequency: every 2-3 hours Urgency: no Nocturia: rare Stream: slight hesitation when starting stream and has straining all the time. Slow weak stream Leaking: no Post void dripping: a little Wearing pads/ Depends: no Urge incontinence: no Stress incontinence: no Incontinence without Sensory Awareness: no Abdominal pain: no Flank pain: no Sexual complaints: no History of Present Illness Tests reviewed: reviewed UA. I have reviewed the previous health record information and history for this patient from Dr. Doshi. I have reviewed and verified the staff HPI to be accurate for this encounter. There have been no associated fever, chills, flank pain, or blood in the urine. Denies any urinary infections since last encounter. Review of Systems PHQ Score Initial Depression Screen Score: 0 ROS - Provider Constitutional: denies weight loss, denies hot flashes. Eyes: denies eye problems. Gastrointestinal: denies nausea, denies vomiting. Cardiovascular: denies chest pain or angina. Integumentary: no dryness Musculoskeletal: denies musculoskeletal symptoms. ENMT: denies otolaryngeal symptoms. Respiratory: no shortness of breath. Heme/Lymph: denies easy bleeding tendency, denies easy bruising tendency. Psychiatric: no confusion, no anxiety. Genitourinary: denies dysuria, denies hematuria, denies discharge, denies urinary frequency, denies urinary hesitancy, denies nocturia, denies incontinence, denies genital sores, denies decreased libido, and denies erectile dysfunction. Physical Exam Vitals & Measurements HR: 80(Peripheral) RR: 16 BP: 140/88 HT: 71 in HT: 180 cm WT: 141 kg WT: 310.2 lb BMI: 43.52 General Appearance: alert, no distress, well nourished, well developed male. Genitourinary: normal scrotum, normal testes, normal urethra, normal epididymis, normal vas deferens/spermatic cord. Flank Pain: none. Bladder: nonpalpable. Assessment/Plan 1. BPH (benign prostatic hyperplasia) (N40.0: Benign prostatic hyperplasia without lower urinary tract symptoms) S/p Cysto 02/07/10. Pt. initially started on Alfuzosin 10mg ER daily at last encounter. Took for a month and d/c due to not noticing much improvement. Shares the only thing it helped with was getting his stream started. Pt. called the office and then was started on Tamsulosin 0.4mg BID. Pt. also stopped taking Flomax. Shares it was causing him constipation and not giving him the relief he desired. Pt. shared that he has a slow stream when voiding in a public bathroom and states it is embarrassing for him. Feels it is due to his mental state. If he voids when no one is around he feels he can completely empty and has no issues. Biggest complaint is having a weak stream. Discussed trying Finasteride but understands this specific medication takes at least 6 months to take effect. Pt. mentioned having his PSA checked. Denies family history of prostate cancer. Pt. wishes to have PSA drawn in office today. Pt. to be called with results. 2. Incomplete bladder emptying (R33.9: Retention of urine, unspecified) See #1. Discussed scheduling Urodynamics. Pt. wishes to move forward with bladder function testing. 3. Proteinuria (R80.9: Proteinuria, unspecified) 30mg/dL per today's UA. Recommended pt. at last visit to see his primary care regarding proteinuria. Follow-up With When Contact Information ERNESTINE HEARD, Earnest Ahumada, [address] [place] [address]- Additional Instructions: Schedule Urodynamics Patient Education Benign Prostatic Hyperplasia I, Sofia Lynn, personally scribed for Dr. Doshi on 01/23/2023 10:22:05. . Documentation recorded by the scribe, Sofia Lynn, accurately reflects the services(s) I performed and decisions made by me. Authenticated by Dr. Dohsi on 01/23/2023 10:25:30. Problem List/Past Medical History Ongoing BPH (benign prostatic hyperplasia) Incomplete bladder emptying Proteinuria Historical No qualifying data Medications Adipex-P, Oral, Daily, Not taking: Stopped 2 months ago alfuzosin 10 mg ER Tab, 10 mg= 1 tab(s), Oral, Daily, 4 refills, Not taking: no relief Suboxone, SubLingual, Daily tamsulosin 0.4 mg Cap, 0.4 mg= 1 cap(s), Oral, BID, 11 refills, Not taking: pt was not getting much relief so he did not have this refilled. (more content not included)... Normal [facility] Comment on above: Result Comment: Elec tronically Signed By: Earnest DOSHI MD\.br\Date and Time Signed: 01/23/23 10:25 EST\.br\Electronically Co-Signed By: Sofia Lynn.br\Date and Time Co-Signed: 01/23/23 10:22 EST CBC AUTO DIFFon 10-25-2022 BASO # 0.0 103/ul Normal 0.0-0.1 [facility] Comment on above: Performed By: #### C BC #### [facility] [address] [address] [address] Mary Lou Harmon Basophils/100 WBC (Bld) 0.4 % Normal 0.2-2.0 [facility] Comment on above: Performed By: #### C BC #### [facility] [address] [place] [address] Dr. Mary Lou Harmon EO # 0.1 103/ul Normal 0.0-0.7 [facility] Comment on above: Performed By: #### C BC #### [facility] [address] [address] [address] Mary Lou Harmon Eosinophils/100 WBC (Bld) 1.5 % Normal 0.9-7.0 [facility] Comment on above: Performed By: #### C BC #### [facility] [address] [place] [address] Dr. Mary Lou Harmon Erythrocyte distribution width (RBC) [Ratio] 12.3 % Normal 11.0-15.0 [facility] Comment on above: Performed By: #### C BC #### [facility] [address] [place] [address] Dr. Mary Lou Harmon Hematocrit (Bld) [Volume fraction] 43.7 % Normal 42.0-54.0 [facility] Comment on above: Performed By: #### C BC #### [facility] [address] [place] [address] Dr. Mary Lou Harmon Hemoglobin (Bld) [Mass/Vol] 14.9 g/dL Normal 14.0-18.0 [facility] Comment on above: Performed By: #### C BC #### [facility] [address] [place] [address] Dr. Mary Lou Harmon IG # 0.01 10e3/ul Normal 0.00-0.03 [facility] Comment on above: Performed By: #### C BC #### [facility] [address] [place] [address] Dr. Mary Lou Harmon IG % 0.2 % Normal 0.0-0.5 [facility] Comment on above: Performed By: #### C BC #### [facility] [address] [place] [address] Dr. Mary Lou Harmon LYMPH # 1.6 103/ul Normal 1.2-3.8 [facility] Comment on above: Performed By: #### C BC #### [facility] [address] [place] [address] Dr. Mary Lou Harmon Lymphocytes/100 WBC (Bld) 31.5 % Normal 20.5-60.0 [facility] Comment on above: Performed By: #### C BC #### [facility] [address] [place] [address] Dr. Mary Lou Harmon MANUAL DIFF REQ NO Normal [facility] Comment on above: Performed By: #### C BC #### [facility] [address] [place] [address] Dr. Mary Lou Harmon MCH (RBC) [Entitic mass] 29.7 pg Normal 25.9-34.0 [facility] Comment on above: Performed By: #### C BC #### [facility] [address] [place] [address] Dr. Mary Lou Harmon MCHC (RBC) [Mass/Vol] 34.1 g/dL Normal 29.9-35.2 [facility] Comment on above: Performed By: #### C BC #### [facility] [address] [place] [address] Dr. Mary Lou Harmon MCV (RBC) [Entitic vol] 87.1 fL Normal 80.0-94.0 [facility] Comment on above: Performed By: #### C BC #### [facility] [address] [place] [address] Dr. Mary Lou Harmon MONO # 0.5 103/ul Normal 0.3-0.8 [facility] Comment on above: Performed By: #### C BC #### [facility] [address] [place] [address] Dr. Mary Lou Harmon Monocytes/100 WBC (Bld) 9.6 % Normal 1.7-12.0 [facility] Comment on above: Performed By: #### C BC #### [facility] [address] [place] [address] Dr. Mary Lou Harmon NEUT # 3.0 103/ul Normal 1.4-6.5 [facility] Comment on above: Performed By: #### C BC #### [facility] [address] [place] [address] Dr. Mary Lou Harmon Neutrophils/100 WBC (Bld) 56.8 % Normal 43.0-75.0 [facility] Comment on above: Performed By: #### C BC #### [facility] [address] [place] [address] Dr. Mary Lou Harmon Platelet mean volume (Bld) [Entitic vol] 9.9 fL Normal 9.5-13.5 [facility] Comment on above: Performed By: #### C BC #### [facility] [address] [place] [address] Dr. Mary Lou Harmon PLT 233 103/ul Normal 150-450 [facility] Comment on above: Performed By: #### C BC #### [facility] [address] [place] [address] Dr. Mary Lou Harmon RBC 5.02 106/ul Normal 4.70-6.10 [facility] Comment on above: Performed By: #### C BC #### [facility] [address] [place] [address] Dr. Mary Lou Harmon WBC 5.2 103/ul Normal 4.0-11.0 [facility] Comment on above: Performed By: #### C BC #### [facility] [address] [place] [address] Dr. Mary Lou Harmon CULTURE URINEon 10-25-2022 CULTURE URINE Culture Observations : NO GROWTH. Normal [facility] Comment on above: Performed By: #### U RCX #### [facility] [address] [place] [address] Dr. Mary Lou Harmon FREE T3on 10-25-2022 FREE T3 2.87 pg/mlL Normal 2.18-3.98 [facility] Comment on above: Performed By: #### T SH, CMP, FT3, T4, LIPID #### [facility] [address] [place] [address] Dr. Mary Lou Harmon GLYCOHEMOGLOBIN A1Con 2021 ADA RECOMMENDATION SEE BELOW Normal [facility] Comment on above: Result Comment: ADA RECOMMENDED LIMIT 4.0 - 6.0 ADA THERAPEUTIC TARGET < 7.0 ACTION SUGGESTED > 7.0 Performed By: #### A 1C #### [facility] [address] [place] [address] Dr. Mary Lou Harmon Glucose [Mass/Vol] 103 mg/dL Normal [facility] Comment on above: Performed By: #### A 1C #### [facility] [address] [place] [address] Dr. Mary Lou Harmon HbA1c (Bld) [Mass fraction] 5.2 % Normal 4.5-6.2 [facility] Comment on above: Performed By: #### A 1C #### [facility] [address] [place] [address] Dr. Mary Lou Harmon LIPID PROFILEon 10-25-2022 CHOL-HDL RATIO NORM SEE BELOW Normal [facility] Comment on above: Result Comment: 3.3 - 4.4 LOW RISK 4.4 - 7.1 AVERAGE RISK 7.1 - 11.0 MODERATE RISK >11.0 HIGH RISK Performed By: #### T SH, CMP, FT3, T4, LIPID #### [facility] [address] [address] [address] Mary Lou Harmon Cholesterol [Mass/Vol] 202 mg/dL Critically high <=200 [facility] Comment on above: Performed By: #### T SH, CMP, FT3, T4, LIPID #### [facility] [address] [place] [address] Dr. Mary Lou Harmon Cholesterol in HDL [Mass/Vol] 57 mg/dL Normal 40-60 [facility] Comment on above: Performed By: #### T SH, CMP, FT3, T4, LIPID #### [facility] [address] [place] [address] Dr. Mary Lou Harmon Cholesterol in LDL [Mass/Vol] 120.8 mg/dL Normal [facility] Comment on above: Performed By: #### T SH, CMP, FT3, T4, LIPID #### [facility] [address] [place] [address] Dr. Mary Lou Harmon Cholesterol.total/Ch olesterol in HDL [Mass ratio] 3.5 {ratio} Normal [facility] Comment on above: Performed By: #### T SH, CMP, FT3, T4, LIPID #### [facility] [address] [place] [address] Dr. Mary Lou Harmon HDL NORMAL > or = 60 mg/dl - LO W CARDIOVASCULAR RISK <40 mg/dl - HIGH CARDIOVASCULAR RISK Normal [facility] Comment on above: Performed By: #### T SH, CMP, FT3, T4, LIPID #### [facility] [address] [place] [address] Dr. Mary Lou Harmon LDL CALC NORMAL SEE BELOW Normal [facility] Comment on above: Result Comment: <100 mg/dl OPTIMAL 100 - 129 mg/dl NEAR OR ABOVE OPTIMAL 130 - 159 mg/dl BORDERLINE HIGH 160 - 189 mg/dl HIGH >190 mg/dl VERY HIGH Performed By: #### T SH, CMP, FT3, T4, LIPID #### [facility] [address] [address] [address] Mary Lou Harmon Triglyceride [Mass/Vol] 121 mg/dL Normal <=150 [facility] Comment on above: Performed By: #### T SH, CMP, FT3, T4, LIPID #### [facility] [address] [address] [address] Mary Lou Harmon VLDL CALC 24.2 mg/dL Normal [facility] Comment on above: Performed By: #### T SH, CMP, FT3, T4, LIPID #### [facility] [address] [address] [address] Mary Lou Harmon MICROALBUMIN, RAND URon 12-0 mALB 3.4 mg/L Normal <=30.0 [facility] Comment on above: Performed By: #### T SH, CMP, FT3, T4, LIPID #### [facility] [address] [place] [address] Dr. Mary Lou Harmon PROF 14(COMP METB)on 022 Albumin [Mass/Vol] 3.9 g/dL Normal 3.4-5.0 [facility] Comment on above: Performed By: #### T SH, CMP, FT3, T4, LIPID #### [facility] [address] [place] [address] Dr. Mary Lou Harmon Albumin/Globulin [Mass ratio] 0.9 {ratio} Normal [facility] Comment on above: Performed By: #### T SH, CMP, FT3, T4, LIPID #### [facility] [address] [address] [address] Mary Lou Harmon ALP [Catalytic activity/Vol] 68 U/L Normal 46-116 [facility] Comment on above: Performed By: #### T SH, CMP, FT3, T4, LIPID #### [facility] [address] [place] [address] Dr. Mary Lou Harmon ALT [Catalytic activity/Vol] 30 U/L Normal 16-63 [facility] Comment on above: Performed By: #### T SH, CMP, FT3, T4, LIPID #### [facility] [address] [place] [address] Dr. Mary Lou Harmon Anion gap [Moles/Vol] 7.7 mmol/L Normal [facility] Comment on above: Performed By: #### T SH, CMP, FT3, T4, LIPID #### [facility] [address] [place] [address] Dr. Mary Lou Harmon AST [Catalytic activity/Vol] 20 U/L Normal 15-37 [facility] Comment on above: Performed By: #### T SH, CMP, FT3, T4, LIPID #### [facility] [address] [place] [address] Dr. Mary Lou Harmon Bilirubin [Mass/Vol] 0.8 mg/dL Normal 0.2-1.0 [facility] Comment on above: Performed By: #### T SH, CMP, FT3, T4, LIPID #### [facility] [address] [place] [address] Dr. Mary Lou Harmon Calcium [Mass/Vol] 8.9 mg/dL Normal 8.5-10.1 [facility] Comment on above: Performed By: #### T SH, CMP, FT3, T4, LIPID #### [facility] [address] [place] [address] Dr. Mary Lou Harmon Chloride [Moles/Vol] 102 mmol/L Normal 98-107 [facility] Comment on above: Performed By: #### T SH, CMP, FT3, T4, LIPID #### [facility] [address] [place] [address] Dr. Mary Lou Harmon CO2 [Moles/Vol] 29.4 mmol/L Normal 21.0-32.0 [facility] Comment on above: Performed By: #### T SH, CMP, FT3, T4, LIPID #### [facility] [address] [place] [address] Dr. Mary Lou Harmon Creatinine [Mass/Vol] 0.74 mg/dL Normal 0.70-1.30 [facility] Comment on above: Performed By: #### T SH, CMP, FT3, T4, LIPID #### [facility] [address] [place] [address] Dr. Mary Lou Harmon EGFR-AF ALBANIAN >60 Normal >=60 [facility] Comment on above: Performed By: #### T SH, CMP, FT3, T4, LIPID #### [facility] [address] [place] [address] Dr. Mary Lou Harmon EGFR-NON AF ALBANIAN >60 Normal >=60 [facility] Comment on above: Performed By: #### T SH, CMP, FT3, T4, LIPID #### [facility] [address] [place] [address] Dr. Mary Lou Harmon Globulin (S) [Mass/Vol] 4.2 g/dL Normal [facility] Comment on above: Performed By: #### T SH, CMP, FT3, T4, LIPID #### [facility] [address] [place] [address] Dr. Mary Lou Harmon Glucose [Mass/Vol] 88 mg/dL Normal 74-106 [facility] Comment on above: Performed By: #### T SH, CMP, FT3, T4, LIPID #### [facility] [address] [place] [address] Dr. Mary Lou Harmon Potassium [Moles/Vol] 4.1 mmol/L Normal 3.5-5.1 [facility] Comment on above: Performed By: #### T SH, CMP, FT3, T4, LIPID #### [facility] [address] [place] [address] Dr. Mary Lou Harmon Protein [Mass/Vol] 8.1 g/dL Normal 6.4-8.2 [facility] Comment on above: Performed By: #### T SH, CMP, FT3, T4, LIPID #### [facility] [address] [place] [address] Dr. Mary Lou Harmon Sodium [Moles/Vol] 135 mmol/L Critically low 136-145 [facility] Comment on above: Performed By: #### T SH, CMP, FT3, T4, LIPID #### [facility] [address] [place] [address] Dr. Mary Lou Harmon Urea nitrogen [Mass/Vol] 11.0 mg/dL Normal 7.0-18.0 [facility] Comment on above: Performed By: #### T SH, CMP, FT3, T4, LIPID #### [facility] [address] [place] [address] Dr. Mary Lou Harmon Urea nitrogen/Creatinine [Mass ratio] 14.9 mg/mg Normal [facility] Comment on above: Performed By: #### T SH, CMP, FT3, T4, LIPID #### [facility] [address] [place] [address] Dr. Mary Lou Harmon T4on 10-25-2022 T4 [Mass/Vol] 8.00 ug/dL Normal 4.50-12.10 [facility] Comment on above: Performed By: #### T SH, CMP, FT3, T4, LIPID #### [facility] [address] [place] [address] Dr. Mary Lou Harmon TSHon 10-25-2022 TSH 1.358 uIU/mL Normal 0.358-3.740 [facility] Comment on above: Performed By: #### T SH, CMP, FT3, T4, LIPID #### [facility] [address] [place] [address] Dr. Mary Lou Harmon UA RANDOM W/MICROSCOPICon AMORPHOUS CRYSTALS FEW Normal [facility] Comment on above: Performed By: #### T SH, CMP, FT3, T4, LIPID #### [facility] [address] [place] [address] Dr. Mary Lou Harmon BACTERIA NONE SEEN Normal NONE SEEN [facility] Comment on above: Performed By: #### T SH, CMP, FT3, T4, LIPID #### [facility] [address] [place] [address] Dr. Mary Lou Harmon Bilirubin Ql (U) Negative Normal NEGATIVE [facility] Comment on above: Performed By: #### T SH, CMP, FT3, T4, LIPID #### [facility] [address] [place] [address] Dr. Mary Lou Harmon CAST NONE SEEN Normal NONE SEEN [facility] Comment on above: Performed By: #### T SH, CMP, FT3, T4, LIPID #### [facility] [address] [address] [address] Mary Lou Harmon Clarity (U) CLEAR Normal CLEAR [facility] Comment on above: Performed By: #### T SH, CMP, FT3, T4, LIPID #### [facility] [address] [place] [address] Dr. Mary Lou Harmon Color (U) YELLOW Normal YELLOW [facility] Comment on above: Performed By: #### T SH, CMP, FT3, T4, LIPID #### [facility] [address] [address] [address] Mary Lou Harmon Crystals LM Nom (Urine sed) SEEN Abnormal NONE SEEN [facility] Comment on above: Performed By: #### T SH, CMP, FT3, T4, LIPID #### [facility] [address] [place] [address] Dr. Mary Lou Harmon Epithelial cells LM Ql (Urine sed) FEW Abnormal NONE SEEN /RARE [facility] Comment on above: Performed By: #### T SH, CMP, FT3, T4, LIPID #### [facility] [address] [place] [address] Dr. Mary Lou Harmon Glucose Ql (U) Negative Normal NEGATIVE [facility] Comment on above: Performed By: #### T SH, CMP, FT3, T4, LIPID #### [facility] [address] [place] [address] Dr. Mary Lou Harmon Hemoglobin Ql (U) Negative Normal NEGATIVE [facility] Comment on above: Performed By: #### T SH, CMP, FT3, T4, LIPID #### [facility] [address] [place] [address] Dr. Mary Lou Harmon Ketones Ql (U) Negative Normal NEGATIVE [facility] Comment on above: Performed By: #### T SH, CMP, FT3, T4, LIPID #### [facility] [address] [place] [address] Dr. Mary Lou Harmon LEUKOCYTES Negative Normal NEGATIVE [facility] Comment on above: Performed By: #### T SH, CMP, FT3, T4, LIPID #### [facility] [address] [place] [address] Dr. Mary Lou Harmon MUCOUS SMALL Abnormal NONE SEEN [facility] Comment on above: Performed By: #### T SH, CMP, FT3, T4, LIPID #### [facility] [address] [place] [address] Dr. Mary Lou Harmon Nitrite Ql (U) Negative Normal NEGATIVE [facility] Comment on above: Performed By: #### T SH, CMP, FT3, T4, LIPID #### [facility] [address] [place] [address] Dr. Mary Lou Harmon pH (U) 7.5 [pH] Normal 5-9 [facility] Comment on above: Performed By: #### T SH, CMP, FT3, T4, LIPID #### [facility] [address] [place] [address] Dr. Mary Lou Harmon RBC NONE SEEN Abnormal 0-2 [facility] Comment on above: Performed By: #### T SH, CMP, FT3, T4, LIPID #### [facility] [address] [place] [address] Dr. Mary Lou Harmon SPEC GRAVITY 1.020 Normal 1.005-<=1.025 [facility] Comment on above: Performed By: #### T SH, CMP, FT3, T4, LIPID #### [facility] [address] [place] [address] Dr. Mary Lou Harmon UA PROTEIN Negative Normal NEGATIVE/ TRACE [facility] Comment on above: Performed By: #### T SH, CMP, FT3, T4, LIPID #### [facility] [address] [place] [address] Dr. Mary Lou Harmon Urobilinogen Qn (U) 0.2 {Guru'U}/dL Normal 0.2 - 1. 0 [facility] Comment on above: Performed By: #### T SH, CMP, FT3, T4, LIPID #### [facility] [address] [place] [address] Dr. Mary Lou Harmon WBC NONE SEEN Normal NONE SEEN [facility] Comment on above: Performed By: #### T SH, CMP, FT3, T4, LIPID #### [facility] [address] [place] [address] Dr. Mary Lou Harmon VITAMIN D 25 OHon 10-25-2022 VIT D 25-OH 16.6 ng/mL Normal [facility] Comment on above: Performed By: #### V ITAD #### [facility] [address] [address] [address] Mary Lou Harmon VIT D RANGES SEE BELOW Normal [facility] Comment on above: Result Comment: <20 ng/mL Vit D deficient 20 - <30 ng/mL Vit D insufficient 30 - 100 ng/mL Vit D sufficient >100 ng/mL Potential Toxicity Performed By: #### V ITAD #### [facility] [address] [address] [address] Mary Lou Harmon Formson 10-22-2022 Forms [id number] D:127 Normal [facility] Historical Records Officeon 10-22-2022 Historical Records Office [id number] :127 Normal [facility] Physician Referralon 022 Physician Referral [id number] :127 Normal [facility] Ambulatory Visit Summaryon 1 12-21-2021 Ambulatory Visit Summary ANNA CAN Kesha :1980 Visit Date:10/21/2022 Ambulatory Visit Instructions Your Diagnosis BPH (benign prostatic hyperplasia) Proteinuria Incomplete bladder emptying Tests Performed Urnls Dip Stick Auto w/o Microscopy POC 32326 Your Care Team Attending Physician - Earnest DOSHI MD Primary Care Physician - Marleny Cunningham MD Referring Physician - Marleny Cunningham MD This Is Your Medications List alfuzosin (alfuzosin 10 mg ER Tab) Contact prescribing physician if questions or concerns buprenorphine-naloxone (Suboxone) phentermine (Adipex-P) Discharge Vitals Heart Rate (Peripheral) 102 Blood Pressure 151/102 Height 180 cm Height 71 in Weight 141.5 kg Weight 311.3 lb BMI 43.67 What to do next Scheduled Follow-Up Appointments Thursday 9:15 AM EST With: Earnest DOSHI MD Where: [facility] [place] Normal [facility] Patient Educationon 10-21-20 Patient Education Urology Benign Prostatic Hyperplasia Benign prostatic hyperplasia (BPH) is an enlarged prostate gland that is caused by the normal aging process and not by cancer. The prostate is a walnut-sized gland that is involved in the production of semen. It is located in front of the rectum and below the bladder. The bladder stores urine and the urethra is the tube that carries the urine out of the body. The prostate may get bigger as a man gets older. An enlarged prostate can press on the urethra. This can make it harder to pass urine. The build-up of urine in the bladder can cause infection. Back pressure and infection may progress to bladder damage and kidney (renal) failure. What are the causes? This condition is part of a normal aging process. However, not all men develop problems from this condition. If the prostate enlarges away from the urethra, urine flow will not be blocked. If it enlarges toward the urethra and compresses it, there will be problems passing urine. What increases the risk? This condition is more likely to develop in men over the age of 50 years. What are the signs or symptoms? Symptoms of this condition include: ? Getting up often during the night to urinate. ? Needing to urinate frequently during the day. ? Difficulty starting urine flow. ? Decrease in size and strength of your urine stream. ? Leaking (dribbling) after urinating. ? Inability to pass urine. This needs immediate treatment. ? Inability to completely empty your bladder. ? Pain when you pass urine. This is more common if there is also an infection. ? Urinary tract infection (UTI). How is this diagnosed? This condition is diagnosed based on your medical history, a physical exam, and your symptoms. Tests will also be done, such as: ? A post-void bladder scan. This measures any amount of urine that may remain in your bladder after you finish urinating. ? A digital rectal exam. In a rectal exam, your health care provider checks your prostate by putting a lubricated, gloved finger into your rectum to feel the back of your prostate gland. This exam detects the size of your gland and any abnormal lumps or growths. ? An exam of your urine (urinalysis). ? A prostate specific antigen (PSA) screening. This is a blood test used to screen for prostate cancer. ? An ultrasound. This test uses sound waves to electronically produce a picture of your prostate gland. Your health care provider may refer you to a specialist in kidney and prostate diseases (urologist). How is this treated? Once symptoms begin, your health care provider will monitor your condition (active surveillance or watchful waiting). Treatment for this condition will depend on the severity of your condition. Treatment may include: ? Observation and yearly exams. This may be the only treatment needed if your condition and symptoms are mild. ? Medicines to relieve your symptoms, including: ? Medicines to shrink the prostate. ? Medicines to relax the muscle of the prostate. ? Surgery in severe cases. Surgery may include: ? Prostatectomy. In this procedure, the prostate tissue is removed completely through an open incision or with a laparoscope or robotics. ? Transurethral resection of the prostate (TURP). In this procedure, a tool is inserted through the opening at the tip of the penis (urethra). It is used to cut away tissue of the inner core of the prostate. The pieces are removed through the same opening of the penis. This removes the blockage. ? Transurethral incision (TUIP). In this procedure, small cuts are made in the prostate. This lessens the prostate's pressure on the urethra. ? Transurethral microwave thermotherapy (TUMT). This procedure uses microwaves to create heat. The heat destroys and removes a small amount of prostate tissue. ? Transurethral needle ablation (TUNA). This procedure uses radio frequencies to destroy and remove a small amount of prostate tissue. ? Interstitial laser coagulation (ILC). This procedure uses a laser to destroy and remove a small amount of prostate tissue. ? Transurethral electrovaporization (TUVP). This procedure uses electrodes to destroy and remove a small amount of prostate tissue. ? Prostatic urethral lift. This procedure inserts an implant to push the lobes of the prostate away from the urethra. Follow these instructions at home: ? Take qqpq-jrb-uwfjmsx and prescription medicines only as told by your health care provider. ? Monitor your symptoms for any changes. Contact your health care provider with any changes. ? Avoid drinking large amounts of liquid before going to bed or out in public. ? Avoid or reduce how much caffeine or alcohol you drink. ? Give yourself time when you urinate. ? Keep all follow-up visits as told by your health care provider. This is important. Contact a health care provider if: ? You have unexplained back pain. ? Your symptoms do not get better with treatment. ? You d (more content not included)... Normal [facility] Urology Office/Clinic Noteon 10-21-2022 Urology Office/Clinic Note Chief Complaint New Pt due to difficulty urinating HPI Staff New Pt last seen 02/11/10. Previous DX: Frequency of urination, nocturia, urgency of urination, weak urinary stream, intermittency, incomplete bladder emptying. S/P Cysto done 02/07/10. Dysuria: denies pain and burning Incomplete bladder emptying: yes Hematuria: denies visible blood Frequency: every hour to hour and a half Urgency: some urgency in the morning Nocturia: denies Stream: some hesitancy, weak stream Leaking: denies Post void dripping: yes Wearing pads/ Depends: denies Urge incontinence: denies Stress incontinence: denies Incontinence without Sensory Awareness: denies Abdominal pain: denies Flank pain: denies Sexual complaints: denies History of Present Illness Tests reviewed: reviewed UA, referral records. I have reviewed the previous health record information and history for this patient from Dr. Doshi. I have reviewed and verified the staff HPI to be accurate for this encounter. There have been no associated fever, chills, flank pain, or blood in the urine. Denies any urinary infections since last encounter. Review of Systems PHQ Score Initial Depression Screen Score: 0 ROS - Provider Constitutional: denies weight loss, denies hot flashes. Eyes: denies eye problems. Gastrointestinal: denies nausea, denies vomiting. Cardiovascular: denies chest pain or angina. Integumentary: no dryness Musculoskeletal: denies musculoskeletal symptoms. ENMT: denies otolaryngeal symptoms. Respiratory: no shortness of breath. Heme/Lymph: denies easy bleeding tendency, denies easy bruising tendency. Psychiatric: no confusion, no anxiety. Genitourinary: denies dysuria, denies hematuria, denies discharge, denies urinary frequency, denies urinary hesitancy, denies nocturia, denies incontinence, denies genital sores, denies decreased libido, and denies erectile dysfunction. Physical Exam Vitals & Measurements HR: 102(Peripheral) BP: 151/102 HT: 71 in HT: 180 cm WT: 141.5 kg WT: 311.3 lb BMI: 43.67 General Appearance: alert, no distress, well nourished, well developed male. Head: normocephalic . Eyes: normal orbit and globe. ENMT: normal examination of external ears. Chest: Lungs CTA, respirations non labored. Cardiovascular: regular rate and rhythm. Abdomen: soft, non distended, no tenderness, no mass or organomegaly, no hernia. Genitourinary: normal scrotum, normal testes, normal urethra, normal epididymis, normal vas deferens/spermatic cord. Flank Pain: none. Bladder: nonpalpable. Penis: normal shaft, normal glans. Lymph Nodes: unremarkable palpation of the cervical area. Skin: warm, dry, no bruising. Psychiatric: cooperative, affect appropriate for age, normal judgement, euthymic mood. Assessment/Plan 1. BPH (benign prostatic hyperplasia) (N40.0: Benign prostatic hyperplasia without lower urinary tract symptoms) New pt last seen 02/11/10 referred for difficulty urinating. S/P Cysto done 02/07/10. Pt experiencing weak stream, hesitancy, incomplete bladder emptying. Pt denies burning, blood, infections. Pt not taking any medications to help him urinate. Discussed starting Alfuzosin ER 10mg QD. Discussed the medication side effects including possible retrograde ejaculation, and the patient will monitor closely for these, as well as for symptom improvement. If severe side effects occur, the medication should be stopped and the office notified. All questions/concerns were discussed. Pt. to call the office if heencounters any issues prior. Pt. acknowledges understanding. Follow up in 3 mos after starting new med and to check for protein in urine. 2. Proteinuria (R80.9: Proteinuria, unspecified) UA today shows TRACE protein. Discussed UA findings. Pt has family hx of hypertension and diabetes. UA from Dr. Cunningham's office done 10/17/22 was negative for protein. Pt to see his PCP, Dr. Cunningham, for protein in urine. Pt recently started Adipex 37.5mg QD for weight loss, pt wonders if this could be related to protein in urine. Discussed that Adipex should not be related to proteinuria. 3. Incomplete bladder emptying (R33.9: Retention of urine, unspecified) See #1. Follow-up With When Contact Information Earnest DOSHI MD, URL [facility] [address] [place] [id number]- Additional Instructions: F/u 3 mos, no labs Patient Education Benign Prostatic Hyperplasia I, Madeline Valente, personally scribed for Dr. Doshi on 10/21/2022 10:03:31. . Documentation recorded by the scribeMadeline, accurately reflects the services(s) I performed and decisions made by me. Authenticated by Dr. Doshi on 10/21/2022 10:04:45. Problem List/Past Medical History Ongoing BPH (benign prostatic hyperplasia) Incomplete bladder emptying Proteinuria Historical No qualifying data Medications Adipex-P, Oral, Daily Suboxone, SubLingual, Daily Allergie (more content not included)... Normal [facility] Comment on above: Result Comment: Elec tronically Signed By: Earnest DOSHI MD\.br\Date and Time Signed: 10/21/22 10:04 EST\.br\Electronically Co-Signed By: Madeline Valente\.br\Date and Time Co-Signed: 10/21/22 10:03 EST Covid-19 PCR (CVDTB)on SARS-CoV-2 (COVID-19) RNA ANUJA+probe Ql (Unsp spec) Detected Critically abnormal NOT DETECTED [facility] Comment on above: Result Comment: This test is not yet approved or cleared by the [place] FDA. When there are no FDA-approved or cleared tests available, and other criteria are met, FDA can make tests available under an emergency access mechanism called an Emergency Use Authorization (EUA). The EUA for this test is supported by the [employer] of Health and Human Service's declaration that circumstances exist to justify the emergency use of in vitro diagnostics for the detection and/or diagnosis of the virus that causes COVID-19. This EUA will remain in effect for the duration of the COVID-19 declaration justifying emergency of IVDs, unless it is terminated or revoked by the FDA (after which the test may no longer be used). Performed By: #### C VDTBH #### [facility] [address] [place] [address] Dr. Mary Lou Harmon Vital Signs Date Time Vital Sign Value Performing Clinician Wesley borja 08-17-2023 16:25-0400 Blood Pressure Location Earnest DOSHI [facility] 08-17-2023 16:25-0400 Diastolic blood pressure 82 mm[Hg] Earnest DOSHI [facility] 08-17-2023 16:25-0400 Heart rate 63 /min Earnest DOSHI [facility] 08-17-2023 16:25-0400 Respiratory rate 16 /min Earnest DOSHI [facility] 08-17-2023 16:25-0400 Systolic blood pressure 138 mm[Hg] Earnest DOSHI [facility] 01-23-2023 09:12-0500 Blood Pressure Location Earnest DOSHI [facility] 01-23-2023 09:12-0500 Diastolic blood pressure 88 mm[Hg] Earnest DOSHI [facility] 01-23-2023 09:12-0500 Heart rate 80 /min Earnest DOSHI [facility] 01-23-2023 09:12-0500 Respiratory rate 16 /min Earnest DOSHI [facility] 01-23-2023 09:12-0500 Systolic blood pressure 140 mm[Hg] Earnest DOSHI [facility] 10-21-2022 09:00-0500 Blood Pressure Location Earnestgisel DOSHI [facility] 10-21-2022 09:00-0500 Diastolic blood pressure 102 mm[Hg] Earnest DOSHI [facility] 10-21-2022 09:00-0500 Heart rate 102 /min Earnest DOSHI [facility] 10-21-2022 09:00-0500 Systolic blood pressure 151 mm[Hg] Earnest DOSHI [facility] Encounters Encounter Date Encounter Type Care Provider Facility Start: 08-17-2023 End: 08-18-2023 ambulatory [place] DOS[place] [place] Start: 08-17-2023 End: 08-17-2023 Patient encounter procedure Earnest DOSHI [facility] [place] Start: 06-15-2023 End: 06-16-2023 ambulatory Earnest DOSHI Facility:[facility] Start: 06-11-2023 End: 06-12-2023 ambulatory Earnest DOSHI Facility:CD:[id number] Start: 05-22-2023 End: 05-23-2023 ambulatory Earnestgisel DOSHI Facility:[facility] [place] Start: 05-21-2023 End: 05-22-2023 ambulatory Earnestgisel DOSHI Facility:[facility] Start: 01-23-2023 End: 01-24-2023 ambulatory Earnest R ERNESTINE Facility:[facility] Start: 01-23-2023 End: 01-23-2023 Lab Drop off Earnest DOSHI [facility] Start: 01-23-2023 End: 01-24-2023 ambulatory Earnestgisel DOSHI Facility:[facility] [place] Start: 01-23-2023 End: 03-04-2023 Pre-admission assessment Earnest DOSHI [facility] Start: 01-23-2023 End: 01-23-2023 Patient encounter procedure Earnest DOSHI [facility] [place] Start: 10-25-2022 End: 10-26-[address] MARLENY CUNNINGHAM Facility:[facility] Start: 10-21-2022 End: 10-22-2022 ambulatory Earnest DOSHI Facility:[facility] [place] Start: 10-21-2022 End: 10-21-2022 Patient encounter procedure Earnest R ERNESTINE [facility] [place] Start: 10-20-2022 ambulatory Earnest DOSHI Facility :[facility] [place] Start: 05-27-2022 End: 05-27-[address] MARLENY CUNNINGHAM Facility:[facility] Procedures Date Procedure Procedure Detail Performing Clinician Start: 06-11-2023 Cystoscopy Earnest LUDIN AWADLydia Start: 02-07-2010 Cystoscopy Earnest LUDIN ECHAVARRIA Payers Date Payer Category Payer Unknown [id number] 2.16.84 [id number] 1980 Unknown [id number] 2.16.84 [id number] 1980 Unknown [id number] 2.16.8 [id number] 1980 Unknown [id number] 2.16.8 [id number] 1982 Unknown [id number] 2.16.8 [id number] 1982 Unknown [id number] 2.16.8 [id number] 1982 Unknown [id number] 2.16.8 [id number] 1982 Unknown [id number] 2.16.8 [id number] 1982 Unknown [id number] 2.16.8 [id number] 1980 Unknown [id number] 2.16.8 [id number] 1980 Unknown [id number] 2.16.8 [id number] 1957 Unknown [id number] Social History Date Type Detail Facility Start: 10-21-2022 Tobacco smoking status Never s moked tobacco (finding) [facility] Tobacco smoking status Never [facility] Sex Assigned At Male [facility] Functional Status Date Assessment Result Facility 08-17-2023 Functional Status N/A [facility] 01-23-2023 Functional Status N/A [facility] 10-21-2022 Functional Status N/A [facility] Hospital Discharge instructions 08-17-2023 Note Date & Type Note Facility 08-17-2023 Hospital Discharg e instructions Patient Education 08/17/2023 17:26:46 Urethrotomy Urethrotomy Urethrotomy is a surgery to treat a section of the urethra that is too narrow (urethral stricture). The urethra is the part of the body that drains urine from the bladder out of the body. Urethral stricture makes it difficult or painful to urinate, and it can increase your risk of having more frequent urinary tract infections (UTIs). The goal of surgery is to open the urethral stricture and restore the normal flow of urine. Urethrotomy is performed by passing a thin tube with a light and tiny camera on the end (cystoscope) into the urethra. An instrument is used to cut the stricture, which widens the urethra. Tell a health care provider about: Any allergies you have. All medicines you are taking, including vitamins, herbs, eye drops, creams, and vrmt-ztq-rwakesd medicines. Any problems you or family members have had with anesthetic medicines. Any blood disorders you have. Any surgeries you have had. Any medical conditions you have. Whether you are or may be . What are the risks? Generally, this is a safe procedure. However, problems may occur, including: Infection. Bleeding. Damage to nearby structures or organs. Urethral stricture coming back after surgery. Inability to get or keep an erection (erectile dysfunction) in men. Blood clots. What happens before the procedure? Staying hydrated Follow instructions from your health care provider about hydration, which may include: Up to 2 hours before the procedure you may continue to drink clear liquids, such as water, clear fruit juice, black coffee, and plain tea. Eating and drinking restrictions Follow instructions from your health care provider about eating and drinking, which may include: 8 hours before the procedure stop eating heavy meals or foods, such as meat, fried foods, or fatty foods. 6 hours before the procedure stop eating light meals or foods, such as toast or cereal. 6 hours before the procedure stop drinking milk or drinks that contain milk. 2 hours before the procedure stop drinking clear liquids. Medicines Ask your health care provider about: Changing or stopping your regular medicines. This is especially important if you are taking diabetes medicines or blood thinners. Taking medicines such as aspirin and ibuprofen. These medicines can thin your blood. Do not take these medicines unless your health care provider tells you to take them. Taking uvtz-qnh-thfuimt medicines, vitamins, herbs, and supplements. Tests You will have an exam or testing, including: A complete physical exam. Blood or urine tests. X-ray and electrocardiogram, or ECG. General instructions Ask your health care provider what steps will be taken to help prevent infection. These may include: ?Washing your genital area with a germ-killing soap. ?Taking antibiotic medicine. You may be asked to shower with a germ-killing soap. Plan to have someone take you home from the hospital or clinic. If you will be going home right after the procedure, plan to have someone with you for 24 hours. What happens during the procedure? An IV will be inserted into one of your veins. You will be given one or more of the following: ?A medicine to help you relax (sedative). ?A medicine to make you fall asleep (general anesthetic). ?A medicine that is injected into your spine to numb the area below and slightly above the injection site (spinal anesthetic). The cystoscope will be inserted into the urethra. An incision will be made in the urethral stricture with a knife or a laser. This incision will allow urine to pass through the stricture. A thin, flexible tube (catheter) may be inserted through your urethra and into your bladder to hold the incision open while it heals. The catheter will help drain your urine. A bandage (dressing) may be placed over the opening of your urethra. The procedure may vary among health care providers and hospitals. What happens after the procedure? Your blood pressure, heart rate, breathing rate, and blood oxygen level will be monitored until you leave the hospital or clinic. You will continue to have a catheter draining your urine. The catheter may be left in for a few days or weeks, depending on the size of the stricture. ?You will be shown how to care for your catheter. ?You may have some blood leaking from around the catheter when you urinate. Do not drive for 24 hours if you were given a sedative during the procedure. You may have to wear compression stockings. These stockings help to prevent blood clots and reduce swelling in your legs. Summary Urethrotomy is a surgery to treat a section of the urethra that is too narrow (urethral stricture). This procedure is done by passing a thin tube with a light and tiny camera on the end (cystoscope) into the urethra. An instrument is used to cut the stricture, which widens the urethra. A thin, flexible tube (catheter) may be inserted through your urethra and into your bladder to hold the incision open while it heals. The catheter will help drain your urine. The catheter may be left in for a few days or weeks after the procedure, depending on the size of the stricture. This information is not intended to replace advice given to you by your health care provider. Make sure you discuss any questions you have with your health care provider. Document Revised: 12/13/2020 Document Reviewed: 05/14/2020 [employer] Patient Education 2022 [email or web address]. Follow Up Care 06/15/2023 09:36:52 With:ERNESTINE HEARD, Earnest Ahumada, URL Address: [facility] [address] , [place] [address]- [phone] When: Unknown [facility] History and physical note 06-04-2023 Note Date & Type Note Facility 06-04-2023 Note [id number] #[id number] [facility] Hospital Discharge instructions 01-23-2023 Note Date & Type Note Facility 01-23-2023 Hospital Discharge instructions Patient Education 01/23/2023 10:14:33 Benign Prostatic Hyperplasia Benign Prostatic Hyperplasia Benign prostatic hyperplasia (BPH) is an enlarged prostate gland that is caused by the normal aging process and not by cancer. The prostate is a walnut-sized gland that is involved in the production of semen. It is located in front of the rectum and below the bladder. The bladder stores urine and the urethra is the tube that carries the urine out of the body. The prostate may get bigger as a man gets older. An enlarged prostate can press on the urethra. This can make it harder to pass urine. The build-up of urine in the bladder can cause infection. Back pressure and infection may progress to bladder damage and kidney (renal) failure. What are the causes? This condition is part of a normal aging process. However, not all men develop problems from this condition. If the prostate enlarges away from the urethra, urine flow will not be blocked. If it enlarges toward the urethra and compresses it, there will be problems passing urine. What increases the risk? This condition is more likely to develop in men over the age of 50 years. What are the signs or symptoms? Symptoms of this condition include: Getting up often during the night to urinate. Needing to urinate frequently during the day. Difficulty starting urine flow. Decrease in size and strength of your urine stream. Leaking (dribbling) after urinating. Inability to pass urine. This needs immediate treatment. Inability to completely empty your bladder. Pain when you pass urine. This is more common if there is also an infection. Urinary tract infection (UTI). How is this diagnosed? This condition is diagnosed based on your medical history, a physical exam, and your symptoms. Tests will also be done, such as: A post-void bladder scan. This measures any amount of urine that may remain in your bladder after you finish urinating. A digital rectal exam. In a rectal exam, your health care provider checks your prostate by putting a lubricated, gloved finger into your rectum to feel the back of your prostate gland. This exam detects the size of your gland and any abnormal lumps or growths. An exam of your urine (urinalysis). A prostate specific antigen (PSA) screening. This is a blood test used to screen for prostate cancer. An ultrasound. This test uses sound waves to electronically produce a picture of your prostate gland. Your health care provider may refer you to a specialist in kidney and prostate diseases (urologist). How is this treated? Once symptoms begin, your health care provider will monitor your condition (active surveillance or watchful waiting). Treatment for this condition will depend on the severity of your condition. Treatment may include: Observation and yearly exams. This may be the only treatment needed if your condition and symptoms are mild. Medicines to relieve your symptoms, including: ?Medicines to shrink the prostate. ?Medicines to relax the muscle of the prostate. Surgery in severe cases. Surgery may include: ?Prostatectomy. In this procedure, the prostate tissue is removed completely through an open incision or with a laparoscope or robotics. ?Transurethral resection of the prostate (TURP). In this procedure, a tool is inserted through the opening at the tip of the penis (urethra). It is used to cut away tissue of the inner core of the prostate. The pieces are removed through the same opening of the penis. This removes the blockage. ?Transurethral incision (TUIP). In this procedure, small cuts are made in the prostate. This lessens the prostate's pressure on the urethra. ?Transurethral microwave thermotherapy (TUMT). This procedure uses microwaves to create heat. The heat destroys and removes a small amount of prostate tissue. ?Transurethral needle ablation (TUNA). This procedure uses radio frequencies to destroy and remove a small amount of prostate tissue. ?Interstitial laser coagulation (ILC). This procedure uses a laser to destroy and remove a small amount of prostate tissue. ?Transurethral electrovaporization (TUVP). This procedure uses electrodes to destroy and remove a small amount of prostate tissue. ?Prostatic urethral lift. This procedure inserts an implant to push the lobes of the prostate away from the urethra. Follow these instructions at home: Take [id number] and prescription medicines only as told by your health care provider. Monitor your symptoms for any changes. Contact your health care provider with any changes. Avoid drinking large amounts of liquid before going to bed or out in public. Avoid or reduce how much caffeine or alcohol you drink. Give yourself time when you urinate. Keep all follow-up visits as told by your health care provider. This is important. Contact a health care provider if: You have unexplained back pain. Your symptoms do not get better with treatment. You develop side effects from the medicine you are taking. Your urine becomes very dark or has a bad smell. Your lower abdomen becomes distended and you have trouble passing your urine. Get help right away if: You have a fever or chills. You suddenly cannot urinate. You feel lightheaded, or very dizzy, or you faint. There are large amounts of blood or clots in the urine. Your urinary problems become hard to manage. You develop moderate to severe low back or flank pain. The flank is the side of your body between the ribs and the hip. These symptoms may represent a serious problem that is an emergency. Do not wait to see if the symptoms will go away. Get medical help right away. Call your local emergency services (911 in the [place] Do not drive yourself to the hospital. Summary Benign prostatic hyperplasia (BPH) is an enlarged prostate that is caused by the normal aging process and not by cancer. An enlarged prostate can press on the urethra. This can make it hard to pass urine. This condition is part of a normal aging process and is more likely to develop in men over the age of 50 years. Get help right away if you suddenly cannot urinate. This information is not intended to replace advice given to you by your health care provider. Make sure you discuss any questions you have with your health care provider. Document Released: 11/09/2006 Document Revised: 10/04/2019 Document Reviewed: 12/14/2017 [employer] Patient Education 2020 [employer] Follow Up Care 10/21/2022 10:04:40 With:ERNESTINE HEARD, Earnest Ahumada, URL Address: [address] [place] [address] [place] [address]- When: Unknown [facility] Hospital Discharge instructions 11-29-2022 Note Date & Type Note Facility 10-21-2022 Hospital Discharge instructions Patient Education 10/21/2022 08:23:24 Benign Prostatic Hyperplasia Benign Prostatic Hyperplasia Benign prostatic hyperplasia (BPH) is an enlarged prostate gland that is caused by the normal aging process and not by cancer. The prostate is a walnut-sized gland that is involved in the production of semen. It is located in front of the rectum and below the bladder. The bladder stores urine and the urethra is the tube that carries the urine out of the body. The prostate may get bigger as a man gets older. An enlarged prostate can press on the urethra. This can make it harder to pass urine. The build-up of urine in the bladder can cause infection. Back pressure and infection may progress to bladder damage and kidney (renal) failure. What are the causes? This condition is part of a normal aging process. However, not all men develop problems from this condition. If the prostate enlarges away from the urethra, urine flow will not be blocked. If it enlarges toward the urethra and compresses it, there will be problems passing urine. What increases the risk? This condition is more likely to develop in men over the age of 50 years. What are the signs or symptoms? Symptoms of this condition include: Getting up often during the night to urinate. Needing to urinate frequently during the day. Difficulty starting urine flow. Decrease in size and strength of your urine stream. Leaking (dribbling) after urinating. Inability to pass urine. This needs immediate treatment. Inability to completely empty your bladder. Pain when you pass urine. This is more common if there is also an infection. Urinary tract infection (UTI). How is this diagnosed? This condition is diagnosed based on your medical history, a physical exam, and your symptoms. Tests will also be done, such as: A post-void bladder scan. This measures any amount of urine that may remain in your bladder after you finish urinating. A digital rectal exam. In a rectal exam, your health care provider checks your prostate by putting a lubricated, gloved finger into your rectum to feel the back of your prostate gland. This exam detects the size of your gland and any abnormal lumps or growths. An exam of your urine (urinalysis). A prostate specific antigen (PSA) screening. This is a blood test used to screen for prostate cancer. An ultrasound. This test uses sound waves to electronically produce a picture of your prostate gland. Your health care provider may refer you to a specialist in kidney and prostate diseases (urologist). How is this treated? Once symptoms begin, your health care provider will monitor your condition (active surveillance or watchful waiting). Treatment for this condition will depend on the severity of your condition. Treatment may include: Observation and yearly exams. This may be the only treatment needed if your condition and symptoms are mild. Medicines to relieve your symptoms, including: ?Medicines to shrink the prostate. ?Medicines to relax the muscle of the prostate. Surgery in severe cases. Surgery may include: ?Prostatectomy. In this procedure, the prostate tissue is removed completely through an open incision or with a laparoscope or robotics. ?Transurethral resection of the prostate (TURP). In this procedure, a tool is inserted through the opening at the tip of the penis (urethra). It is used to cut away tissue of the inner core of the prostate. The pieces are removed through the same opening of the penis. This removes the blockage. ?Transurethral incision (TUIP). In this procedure, small cuts are made in the prostate. This lessens the prostate's pressure on the urethra. ?Transurethral microwave thermotherapy (TUMT). This procedure uses microwaves to create heat. The heat destroys and removes a small amount of prostate tissue. ?Transurethral needle ablation (TUNA). This procedure uses radio frequencies to destroy and remove a small amount of prostate tissue. ?Interstitial laser coagulation (ILC). This procedure uses a laser to destroy and remove a small amount of prostate tissue. ?Transurethral electrovaporization (TUVP). This procedure uses electrodes to destroy and remove a small amount of prostate tissue. ?Prostatic urethral lift. This procedure inserts an implant to push the lobes of the prostate away from the urethra. Follow these instructions at home: Take [id number] and prescription medicines only as told by your health care provider. Monitor your symptoms for any changes. Contact your health care provider with any changes. Avoid drinking large amounts of liquid before going to bed or out in public. Avoid or reduce how much caffeine or alcohol you drink. Give yourself time when you urinate. Keep all follow-up visits as told by your health care provider. This is important. Contact a health care provider if: You have unexplained back pain. Your symptoms do not get better with treatment. You develop side effects from the medicine you are taking. Your urine becomes very dark or has a bad smell. Your lower abdomen becomes distended and you have trouble passing your urine. Get help right away if: You have a fever or chills. You suddenly cannot urinate. You feel lightheaded, or very dizzy, or you faint. There are large amounts of blood or clots in the urine. Your urinary problems become hard to manage. You develop moderate to severe low back or flank pain. The flank is the side of your body between the ribs and the hip. These symptoms may represent a serious problem that is an emergency. Do not wait to see if the symptoms will go away. Get medical help right away. Call your local emergency services (911 in the [place] Do not drive yourself to the hospital. Summary Benign prostatic hyperplasia (BPH) is an enlarged prostate that is caused by the normal aging process and not by cancer. An enlarged prostate can press on the urethra. This can make it hard to pass urine. This condition is part of a normal aging process and is more likely to develop in men over the age of 50 years. Get help right away if you suddenly cannot urinate. This information is not intended to replace advice given to you by your health care provider. Make sure you discuss any questions you have with your health care provider. Document Released: 11/09/2006 Document Revised: 10/04/2019 Document Reviewed: 12/14/2017 [employer] Patient Education 2020 [email or web address]. Follow Up Care 10/20/2022 11:29:00 With:Earnest DOSHI MD, URL Address: [facility] [address] [place] [address]- When: Unknown [facility] Evaluation + Plan note Note Date & Type Note Facility Evaluation + Plan note Future Appointments Appointment Date:01/23/2023 09:15:00 AM Scheduled Provider:Earnest DOSHI MD Location:[facility] Appointment Type:URO Office Visit [facility] Evaluation + Plan note Note Date & Type Note Facility Evaluation + Plan note Future Appointments Appointment Date:02/24/2023 10:30:00 AM Scheduled Provider: Location:[facility] Appointment Type:Urology CALL PAT FT Appointment Date:03/03/2023 03:00:00 PM Scheduled Provider: Location:[facility] Appointment Type:Urology FT [facility] Hospital course Narrative Note Date & Type Note Facility Hospital course Narrative No data available for this section [facility] Hospital Discharge instructions Note Date & Type Note Facility Hospital Discharge instructions No data available for this section [facility] Progress note Note Date & Type Note Facility Progress note No data available for this section [facility] Summary Purpose Family History No Family History Records FoundNo Family History Records Found Advance Directives No Advanced Directives Records FoundNo Advanced Directives Records Found Additional Source Comments Patient Care team informatio n (unrecognized section and content) Personnel Name: Marleny Cunningham MD Address: Address: [address] [place] [address] Personnel Name: Marleny Cunningham MD Address: Address: [address] [place] [address] Personnel Name: Marleny Cunningham MD Address: Address: [address] [place] [address] Personnel Name: Marleny Cunningham MD Address: Address: [address] [place] [address] Personnel Name: Marleny Cunningham MD Address: Address: [address] [place] [address] (unrecognized sect ion and content) No Status Records FoundNo Status Records Found INFORMATION SOURCE (unrecogn ized section and content) DATE CREATED AUTHOR 11/01/2022 Arlet Meng [facility] [email or web address] DATE CREATED AUTHOR 'S AURE MARIN 08/24/2023 [facility] FOR RECORDS PERTAINING TO PATIENTS WHO ARE OR HAVE BEEN ENROLLED IN A CHEMICAL DEPENDENCY/SUBSTANCEABUSE PROGRAM, SOME INFORMATION MAY BE OMITTED. This clinical summary was aggregated from multiple sources. Caution should be exercised in using it in the provision of clinical care. This summary normalizes information from multiple sources, and as a consequence, information in this document may materially change the coding, format and clinical context of patient data. In addition, data may be omitted in some cases. CLINICAL DECISIONS SHOULD BE BASED ON THE PRIMARY CLINICAL RECORDS. [facility]. provides no warranty or guarantee of the accuracy or completeness of information in this document.
[2024-01-16 09:44] LABS: Basophils Percent Auto 0.7 % (0.2-2.0); Eosinophils Absolute Auto 0.1 10^3/uL (0.0-0.7); Eosinophils Percent Auto 1.6 % (0.9-7.0); Hematocrit 45.4 % (42.0-54.0); Hemoglobin 15.5 g/dL (14.0-18.0); Immature Granulocytes Abs Auto 0.01 10^3/uL (0.00-0.03); Immature Granulocytes Pct Auto 0.2 % (0.0-0.5); Lymphocytes Absolute Auto 2.1 10^3/uL (1.2-3.8); Lymphocytes Percent Auto 36.7 % (20.5-60.0); Mean Corpuscular HGB Conc 34.1 g/dL (29.9-35.2); Mean Corpuscular Hemoglobin 29.5 pg (25.9-34.0); Mean Corpuscular Volume 86.3 fL (80.0-94.0); Mean Platelet Volume 9.9 fL (9.5-13.5); Monocytes Absolute Auto 0.6 10^3/uL (0.3-0.8); Monocytes Percent Auto 10.4 % (1.7-12.0); Neutrophils Absolute Auto 2.9 10^3/uL (1.4-6.5); Neutrophils Percent Auto 50.4 % (43.0-75.0); Platelet Count 247 10^3/uL (150-450); Red Blood Count 5.26 10^6/uL (4.70-6.10); Red Cell Distribution Width 12.4 % (11.0-15.0); White Blood Count 5.7 10^3/uL (4.0-11.0)
[2024-01-16 10:03] LABS: Estimated Average Glucose 100 mg/dL; Glycohemoglobin A1C 5.1 % (4.5-6.2)
[2024-01-16 12:11] LABS: Alanine Aminotransferase 33 U/L (16-63); Albumin Globulin Ratio 0.8; Albumin Level 3.7 g/dL (3.4-5.0); Alkaline Phosphatase 62 U/L (46-116); Anion Gap 11.3; Aspartate Amino Transferase 22 U/L (15-37); BUN Creatinine Ratio 16.2; Bilirubin Total 0.6 mg/dL (0.2-1.0); Calcium 8.9 mg/dL (8.5-10.1); Carbon Dioxide 29.1 mmol/L (21.0-32.0); Chloride 103 mmol/L (98-107); Chol HDL Ratio 3.7; Cholesterol 201 mg/dL (<=200); Estimated GFR (African America >60 (>=60); Estimated GFR (Non-African Ame >60 (>=60); Free T3 3.82 pg/mL (2.18-3.98); Globulin 4.5 g/dL; Glucose 80 mg/dL (74-106); HDL Cholesterol 54 mg/dL (40-60); Potassium 4.4 mmol/L (3.5-5.1); Sodium 139 mmol/L (136-145); Thyroid Stimulating Hormone 1.835 uIU/mL (0.358-3.740); Total Protein 8.2 g/dL (6.4-8.2); Triglycerides 104 mg/dL (<=150); VLDL CHOLESTEROL 20.8 mg/dL
[2024-01-18 12:08] LABS: Insulin 14.2 uIU/mL (2.6-24.9)
== END 2024-01-16 09:22 | disposition home or self-care (01) ==
LOC: LAB 09:23
PROVIDERS: PCP Family Medicine; Visit Provider Family Medicine
DX: Z00.00 Encounter for general adult medical examination without abnormal findings (principal); E78.5 Hyperlipidemia, unspecified; R73.09 Other abnormal glucose
CPT/HCPCS: 36415; 80053; 80061; 83036; 83525; 84436; 84443; 84481; 85025

== ENCOUNTER 2024-04-27 15:44 | Outpatient (OUT) | payer BC, SELFPAY ==
--- NOTE | 2024-04-27 15:50 | US_ITS ---
The [address] [address] Patient Name: ANNA CAN MRN: [id number] date: 1980 Sex: M Assigned Patient Location: US Current Patient Location: US Accession/Order Number: [id number] Exam Date: 04/27/2024 16:06 Report Date: 04/27/2024 18:17 At the request of: MARLENY MACIAS Procedure: US venous doppler LE LT Left LOWER EXTREMITY DUPLEX VENOUS SONOGRAPHY, 04/27/2024 4:06 PM EDT: COMPARISON: No prior comparison. CLINICAL HISTORY: Unspecified cellulitis, L0390. TECHNIQUE: Venous duplex examination performed using grayscale, color flow and spectral analysis. FINDINGS: The left common femoral, femoral, popliteal, posterior tibial, anterior tibial and peroneal veins are free of any deep venous thrombosis. The visualized left greater saphenous vein is also free of any superficial thrombosis. Mildly enlarged left groin lymph node with short axis diameter of 1.3 cm. Additional lymph node in the left groin predominantly fatty replaced has a short axis diameter of 0.9 cm. A third lymph node also predominantly fatty replaced with short axis diameter of 1.2 cm. These are likely reactive. US/US venous doppler LE LT IMPRESSION: 1. There is no evidence of deep venous thrombosis in the left lower extremity identified as described above. 2. Some mildly enlarged left groin lymph nodes are likely reactive. Electronically authenticated by: Roberta GRANT Date: 04/27/2024 18:17
--- OUTSIDE RECORDS SUMMARY | 2024-04-27 15:55 | XMS_ITS | CCD ---
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 Name Role Phone Marleny Cunningham Primary Care Physician COLLEEN, DR FARMER Admitting Unavailable COLLEEN, DR FARMER Attending Unavailable COLLEEN, DR FARMER Primary Care Unavailable COLLEEN, DR FARMER Consulting Unavailable MARCO ANTONIOY, DR FARMER Admitting Unavailable HOY, DR FARMER Attending Unavailable HOY, DR FARMER Primary Care [...] to substance Swelling (finding) [facility] Medications Current Medications Medication Drug Class(es) Dates Sig (Normalized) Sig (Original) 24 hr alfuzosin hydrochloride 10 mg extended release oral tablet (1 source) alpha-Adrenergic Odalis Start: 10-21-2022 take 1 tablet by mouth once daily alfuzosin 10 mg ER Tab 10 mg = 1 tab(s), Oral, Daily, # 30 tab(s), Refills(s) 4, Pharmacy: [facility]/pharmacy #[id number], 180, cm, 10/21/22 9:12:00 EST, Height/Length Dosing, [...] Daily, # 30 cap(s), Refills(s) 2, Pharmacy: [facility]/pharmacy #[id number], 180, cm, 01/23/23 9:31:00 EST, Height/Length [...] including vitamins, herbs, eye drops, creams, and ilqx-mgp-xvqpvuu medicines. ? Any problems you or family [...] tells you to take them. ? Taking wknr-ogb-wqhdbmw medicines, vitamins, herbs, and supplements. Tests You [...] end (c (more content not included)... [facility] Reminderson 08-17-2023 Reminders - From: Cally Menchaca To: [facility] - Dana Doshi; Cc: Cally Menchaca; Sent: 08/17/2023 17:31:47 EDT Show up: 04/23/2024 17:31:00 EDT Subject: Cysto/UD Due Date/Time: 05/09/2024 17:31:00 EDT Reminder/Recall Patient needs Cysto/UD due in May 2024 [facility] Urology Office/Clinic Noteon 08-17-2023 Urology Office/Clinic Note [...] Earnest Ahumada, URL [facility] [address] [place] [address] [phone] Additional Instructions: Will schedule 1 yr cysto with UD Patient Education UrethMadeline Aguirre, personally scribed for Dr. Doshi on 08/17/2023 [...] Dipstick: 1+ (30 mg/dl) (08/17/23 16:38:00) Specific [place] Urine Dipstick: 1.025 (08/17/23 16:38:00) Urine Appearance Urine Dipstick: Clear (08/17/23 (more content not included)... [facility] Comment on above: Result Comment: Elec tronically Signed By: Earnest DOSHI MD\.br\Date and Time Signed: 08/17/23 17:31 EDT\.br\Electronically Co-Signed [...] HEARD, Earnest Ahumada Where: [facility] Lab Reportson 06-12-2023 Lab Reports [id number]#1.00C D:127 [facility] Operative Reporton Operative Report [id number]#1.00C D:127 [facility] ECG 12-Leadon 06-05-2023 ECG 12-Lead [id number]#1.00C D:127 [facility] Lab Reportson 06-05-2023 Lab Reports [id number]#1.00C D:127 [facility] Consent for Procedure/Surger yon 06-04-2023 Consent for Procedure/Surgery [id number]#1.00C D:127 [facility] IntraOperative Documentson 0 06-04-2023 IntraOperative Documents [id number]#1.00C D:127 [facility] Ambulatory Visit Summaryon 0 05-22-2023 Ambulatory Visit Summary ANNA CAN :1980 Visit Date:05/22/2023 Ambulatory Visit Instructions Your Diagnosis BPH (benign prostatic hyperplasia) Incomplete bladder emptying Proteinuria Tests Performed Urnls Dip Stick Auto w/o Microscopy POC 72746 Your Care Team Attending Physician - Earnest [...] Will schedule procedure Where: [address] [place] [address] Medications What How Much When Instructions Unchanged dutasteride (dutasteride 0.5 mg Cap) 1 Capsules By Mouth Every day Unchanged buprenorphine-naloxone (Suboxone) Sublingual Every day Contact prescribing physician if questions or concerns Unchanged phentermine (Adipex-P) By Mouth Every day Contact prescribing physician if questions or concerns Test Results Urnls Dip Stick Auto w/o Microscopy POC 69993 (05/22/2023) Bilirubin Urine Dipstick - Negative Blood Urine Dipstick - 3+ Large Glucose Urine Dipstick - Negative Ketones Urine Dipstick - Negative Leukocytes Urine Dipstick - Negative Nitrite Urine Dipstick - Negative Protein Urine Dipstick - Trace Specific [place] Urine Dipstick - 1.020 Urine Appearance Urine [...] the only (more content not included)... [facility] Consent for Procedure/Surger yon 05-22-2023 Consent for Procedure/Surgery [id number]#1.00C D:127 [facility] Patient Educationon 05-22-20 23 Patient Education Urology Benign Prostatic Hyperplasia [...] Follow these instructions at home: ? Take brhz-xeq-bqvvroq and prescription medicines only as told by [...] the medicine (more content not included)... [facility] Urology Office/Clinic Noteon 05-22-2023 Urology Office/Clinic Note [...] also tried Tamsulosin 0.4mg 0.4mg BID-pt stopped ggxo1bo due to constipation & no improvement in [...] Earnest Ahumada, URL [address] [place] [address] Additional Instructions: Will schedule procedure Patient Education Benign Prostatic Hyperplasia Margaret Eason, personally scribed for Dr. Doshi on 05/22/2023 [...] Total 0.4 ng/ (more content not included)... [facility] Comment on above: Result Comment: Elec tronically Signed By: ERNESTINE HEARD, Earnest Ahumada\.br\Date and Time Signed: 05/22/23 10:33 EDT\.br\Electronically Co-Signed By: Margaret Murcia MA\.br\Date and Time Co-Signed: 05/22/23 10:32 EDT Consent for Treatmenton 04-24 Consent for Treatment [id number]#1.00C D:127 [facility] Pre-Certification Formon Pre-Certification Form [id number]#1.00 CD:127 [facility] Lab Reportson 02-02-2023 Lab Reports [id number]#1.00C D:127 [facility] Coding Summary.on 01-30-2023 Coding Summary. CD:[id number] Gh0 bWw+PGhlYWQ+HT5UWGWaT84 vrBGxiU3mJ4MVWGtGFfweNI YKSHdDYdCagvXwHV4xjJKxH XJu IC8+OK1fFRAjLdholYBkx2I 6yYN0J07uom4iVAtyvYF6WI HrAoVfjwamt1sbrZj2DHwvS mluOyBt POPpdE79EHQ1lQ66Pq12uQG wzSSwy4cvkGi7OpPjQFMpNW U2wZzzSUcut6VfYHZxQ50be UKpr2B7 OOCtlStsgUHtWgBlwOV1wN2 kVUmzmuejo2tzidylIbr1un 62jAJsp7J4tFU6C5WezcO7V GJvbGQg XqnnhVPQtC9iuftyl9dsfho pCdKqCGAdOEk8UQf4JXGffZ hoJxClVO21TJC2VJBxtxTsV 2FsLWFs wBwtSiN9t8A6Ms6TV6YAZcg iH3VEKJTRNVbhvDK+PC90cj 59C8TxFtsmHiy4YXRoUYA4b PC3kO1a FHQePRvin2L4zJA8B2DjxqH wwx4ld0ggJVEnCUweX87llF Dqt7X6CFVgxJS0USGseYzmI iBzaG93 Oyc+UIGakKfag1GaTyfoc7x vd6uokUz0DtyhAYEffoGfsV jiCHW2t6ZqRt3zQJLfsQR6h NG5mZ9x GoFlUzE4GWxkY121RdNbcQV hIvidD03nK5FayBD+PHRyPj e8MWTqvPntEK3zW7XyVOJwm mctbGVm yHbwCM3bOVFaypjlAVLpwY2 xDQLlW5x8XaCmMeH8FLfoM6 IyGRRdbfqjFr42pE5qBgClE wN7PIya F9ZfegV6HJVjnTUhOEjdCEH 8R14ip5J3PDHdMWOmDBC9sV Q0wC6reOrhtziqiCTauNwrn mVydGlj JNtaWSseL938DHWmiAmjMyP vZGluZyBEYXRlOiAgMDMvMT AvMjAyMzwvdGQ+RMUnROD0z WxlPSAn rVYuFMgbSz6wsFzlqLexGN2 qBWZdnwptNAVlxZ7zFILbhC AmaCdcDF4bOYWtvbmmv231Q iAxMHB0 EVNqhGTtB7JkgO9zNbNiIJX qWQKwW7TjmSZyUDgfZ908BL ilKyS4EYWvclQsO6SePEZat WduOiB0 f5E1Ku3Im9OjjzqsA7IkpVF cXdLdZkdyXFr0I8EdBzgxqX I+OB30QGWaBG23WAh5PZK0b WxlPSdi KWQlN0JzfB8jZuDeQJMtGVD kOyc+PHRhYmxlIHdpZHRoPS mdVARqZeAjgWgxQV6uGz6iU GVyLWNv jAdxxDBaAnVqn0caISKaGQy oEE8wjDblU3DsiLO0OKVxk3 q4Zc97Q49hB2UodGP+PGNvb VL9rII3 bH0rJfUeYzN2URroX935GiH xdDBoUamqt6was7jniNn4Td H7MXAjvjQdpTtsMPF7t7CeZ w15R23j IHdpZHRoPSIxNSUiIHZhbGl dah2yaW3cJj9+UNVobJR0eL H5dH8kKfWkPnY3QRfjW036M nRvcCIv Cefyy1uuc0szbHf1VkGuMEL jypTfkQvsRFD7m5QiPi64V9 NzeBirv0BvHti9xc15oUCss 1W1gUW6 I5YgRAArormgfCTgwKklPC9 pRTAshtqnGNRdnE6dNFPfF2 e7GhTvIzM0IFyoB8RucwH4D GJvbGQg WDDtvWNNiU1fflrjc9ybfvm sOoTkWSLzEQi7BWp9RECmaI qtDbIfTBB8NxB0QOV8kTGjh O6fbMaf uxiacK3nOap+WBM3vFIsaHO KDJ3fPimzoOL+KIOcUUE3gQ uqKGflKXOsfL0cCKFeD4z5C iAwLjA1 TClvY2XxbfI4RMFjwOItWAS nrNJRkX7qqjfyf4fwnmqeXe NvIQUqXPq0MMq9JVXjgJoxV iBsZWZ0 TtE9LLI8qUFyuV4qkRiawiy taS4dMbx+IcouhMocLLO6DU z3B2TsCub4QIRvuDwrAC1th GFkZGlu Yo4hwNumcImjOK3eIYPwyqq na860DiWcr1kkVVBboSYgSR bzBAN3B58nx7D7FEHsSIFgE YU7cHG7 jJ0gbBxusndliRPdsBefmbA faWksYFmhQFpdD791BQAweV ofNaAmKNs4B4NwYet3PNSfa IizEE9q gEStULfmKp9phKlqrIfwFG1 oUJWlczptp148BoOnx2xlKN GvkBCqVHzqIKK9G22cq1G2F CMwMDAw LIW4tAA2lO9wxIbsieupqHS mdDsgdmVydGljYWwtYWxpZ2 23ZWKghJojNcOavNf5H1AlV ll3KELp zRpnMG8oaETwFMwgVr6hjRi pqYozAY9rXJFsxmmvd678Mx Lnv4ywZUJziBKhFJpjLYU9A 40ni1R1 MLPpCMCsBRX7yWP1bS6slGv nbjogbGVmdDsgdmVydGljYW hoYXwtW042SBSoqOnjRaOcr GllbnQg UBsnHXl0T5LfHstuwWB+PC9 4SFFeXE42cPLmjFAyt2rdzO i4AfTuDMXxNYH9kMnsOSzao 3JkZXIt Q97kcFRth9X2GHIwaHdxyOS qNxEniAI3eT7bZZkseqhhz8 bwprqcQoxud7eaph67qG02W 29sIHdp ZHRoPSIzMCUiIHZhbGlnbj0 ehY6iGu4+BIRipAE3cQS1tR 9fQBByAnT5FLxjS216GkGlf CIvPjxj o8kon8ydeDp1VeT9GDViewY xyJpoBEU1d6GrLe55Y23nPC dpZHRoPSIyMCUiIHZhbGlnb p1usA7t Ii8+QVTkfMH0pUO3zI5eWhX eSyZ2OWqcI957VeDpkZJdYk lgD62lZ5StyIV+UAOvZdc1M CBzdHls JF9hqMMkBUkiGn6cCXV2YmD rJqUcVMsuC9FcPYMblkdeam jflXL2QXFwUEMjqX33Ea0ty DogMTBw yKATeH7rglleo2cvqeybJxD eMILoTRr7BPq1FDLrfKyhRl WvOLM8HqB4TOB7fAPlsT5zl Glnbjog aO9pP6BwUCFqglfpSz48pY7 sWvTtHeN1EYydZbf+Q0xBUF ArWR7ET4lTBYAIGCJ1H6VcP gy4ARBu rCflGC1kmTKtWWmxHr8wqRb drPxoVB3pIKDrrqarRLRvxB 2eGSEvnDUgpSekWS3ySSQna ykco277 VxZkBYS3VSEtyQLxZ7WoqW9 dVlSrLWUgQIIjM7HyxJFkGI zpO260ZCouYcB4CSGxukLnI 2FsLWFs cLvrRiQ5k4Q1Rb8fIh8yMF1 gZDjiFW72PO25pPFpx1S3wM R7N4DzWQOympfdzaclrUG8O DAuMDUw yI83vEPtBRqqSy4kc1K0t77 7QSGjUIAfeI58Yu8ucJkiFR QnpDCFgO2opjiop2zhkpvrE zAwMDAw VYc8YZd1RZTjpFabPiTnKCT 6EaP4IFZ0nSMtoZ3hjOxzla eubY6mOhg+TUBpMERxlgZ3P 3PpRqs3 PBKdnJocNF8mfUQeKTnnHa0 mjNnpzIsfMQ0bIRVlbxwiKG JprZ6yQBHlmILyyJsdDO0tG TBpbjtm u827GlOxRDZ5FICnwAXeO4N ikO1yPhEbYIFqMLTnM0HexS PmAJfbL507DOyzLjE6WLFeh mArF8Jz CAJkkWfhXkV7f0I5Zv1KBKs uUW93WR46xZUsn8C6oYT6O2 QzQGZodpjxjiyazEO8UBXoF DUwaW47 kUFyHEndOd7ra2O6d333RBY iOAMhmT88Ym6rdNbpRJFukC HEzS7eowmib6dvdwmkSzLtR DAwMDt0 SEm2IFIbqHsmUnPzTQQ3RrH 5KAZ0wNFjpN4oeSyjuxpajO 9wOyc+QZBtZMTkt0Uzk4AoL W28FM87 M7HcXofrdTUceZY+PHRhYmx lIHdpZHRoPScxMDAlJyBzdH ntDX3rKl9eNIFfOBPdbCqme HNlOiBj s8rwLKMuTPtpEC2nqTopQ8U cwUA3KBUls4j5Bq86K42xM8 JvdXA+LSNznPX1mIB9cF1dN zAlIiB2 VBllH339OmPnuNEsMqrcw7e wu5xbeQk7TdXnOJYxhrHcoZ ngYRM1r2YvGo12X92iTHszJ HRoPSIy OSFfWFRlwJmxqa3dpZ6aTw7 +MZNpbWU1lTD7nQ1aNyGnUz R2GGtrA709AuFifOFqJdudX 89oU6Gz dXA+CPSbDbs6FPRqyUezZV2 gvENcGWhhXk5yGDW5UrBzLx SjVWytI2EqWUYpfmstpqfqf JK4NFBs FYXdxQ02Cn4ygUrhGb4oXTJ wDQW2SSXzuRKuF3OfjN1aPq FpEMVlZXKaO7KgaKBnVFtnQ 246IGxl IyK9GZYftsPkW9GrZGUgtBr hOfW0r0Q3Vn5ShTggrYBtZV 4mQvUsWQs4F1CbJen5HYDba HxzDK6j cONpYBkkEh5bpBxrwMpmDF6 sVEUlvegyh289QaWxi8jzLI CkmKPxKUhnTJT1P18ko9P2J CMwMDAw EBG8qAA6cO4mcGeihltnpEC mdDsgdmVydGljYWwtYWxpZ2 69VZLbnCnwFgEHObq7R4YoP po8XOPj eFmmLJ4wpWDgEPpuSe0iyNm emHtaVH8mPQNrwuene717Oy Azg6qiWGQenECvDIupFDO8F 42vm2V5 JRHfLKRiSCA1qUY3kA5usTr nbjogbGVmdDsgdmVydGljYW xsGGchM538QJCnyVggQc2GM ry8D5Cg Qbm2UTVhuVwfTB7pzVEzCZt hDn5huUkgrMbnLQ9pFASofa wqv653BsZyd5geQIXhhYNzM GltZXM7 Y31uq5K4SCOsXTRpWAG2zWN 2fV6jtWklkuzduHZeyJalio EthQcaOSspCJgpU553UOJlj DsnPlBh eWVyOjwvdGQ+KV88oq83Z2T gJmmvGfj2INGeXKO2tIM0oS 1gWLAkLKziw1X6zLY7Z4Pit dAqgo8u b2xs (more content not included)... [facility] Ambulatory Visit Summaryon 0 01-23-2023 Ambulatory Visit Summary ANNA CAN :1980 Visit Date:01/23/2023 Ambulatory Visit Instructions Your Diagnosis BPH (benign prostatic hyperplasia) Incomplete bladder emptying Proteinuria Prostate cancer screening Tests Performed Urnls Dip Stick Auto w/o Microscopy POC 83058 Your Care Team Attending Physician - ERNESTINE [...] Follow-Up Appointments Thursday 10:30 AM EDT Where: [facility] Thursday 3:00 PM EDT Where: [facility] You Need to Schedule the Following Appointments Follow Up with ERNESTINE HEARD, JACKIE Ty When: Where: [address] [place] [address]- Medications What How Much When Instructions Unchanged [...] Urnls Dip Stick Auto w/o Microscopy POC 14550 (01/23/2023) Bilirubin Urine Dipstick - Negative Blood Urine Dipstick - Negative Glucose Urine Dipstick - Negative Ketones Urine Dipstick - Negative Leukocytes Urine Dipstick - Negative Nitrite Urine Dipstick - Negative Protein Urine Dipstick - 1+ (30 mg/dl) Specific [place] Urine Dipstick - 1.020 Urine Appearance Urine [...] in kidney (more content not included)... [facility] Ambulatory Visit Summary ANNA CAN :1980 Visit Date:01/23/2023 Ambulatory Visit Instructions Your Diagnosis BPH (benign prostatic hyperplasia) Incomplete bladder emptying Proteinuria Tests Performed Urnls Dip Stick Auto w/o Microscopy POC 83941 Your Care Team Attending Physician - Earnest DOSHI MD Primary Care Physician - Marlney Cunningham MD This Is Your Medications List [...] with ERNESTINE HEARD, JACKIE Ty When: Where: [address] [place] [address]- Medications What How Much When Instructions Unchanged [...] Urnls Dip Stick Auto w/o Microscopy POC 82369 (01/23/2023) Bilirubin Urine Dipstick - Negative Blood Urine Dipstick - Negative Glucose Urine Dipstick - Negative Ketones Urine Dipstick - Negative Leukocytes Urine Dipstick - Negative Nitrite Urine Dipstick - Negative Protein Urine Dipstick - 1+ (30 mg/dl) Specific [place] Urine Dipstick - 1.020 Urine Appearance Urine [...] the kelly (more content not included)... [facility] CHEMISTRYOrdered By: SYSTEM SYSTEM on 01-23-2023 Prostate specific Ag [Mass/Vol] 0.4 ng/mL Normal 0.1 - 3.5 ng/mL [facility] [place] [place] Remisol PSA Totalon 01-23-2023 Prostate specific Ag [Mass/Vol] 0.4 ng/mL Normal 0.1-3.5 [facility] Comment on above: Result Comment: The concentration of PSA determined by different manufacturers can vary due to differences in assay methods and reagent specificity. Values obtained from different assay methods cannot be used interchangeably. The methodology used for this result was chemiluminescence using [employer] Access Hybritech PSA reagent. Performed By: #### 1 [id number] ####[facility] [address] [place] [address] Patient Educationon 01-24-20 23 Patient Education Urology [...] Follow these instructions at home: ? Take ntnm-ysq-yjgqrkg and prescription medicines only as told by [...] You d (more content not included)... [facility] Urology Office/Clinic Noteon 01-23-2023 Urology Office/Clinic [...] Contact Information ERNESTINE HEARD, Earnest Ahumada, URL [address] [id number]- Additional Instructions: Schedule Urodynamics Patient Education Benign Prostatic Hyperplasia ISofia, personally scribed for Dr. Doshi on 01/23/2023 10:22:05. . Documentation recorded by the scribe, Sofia Lynn, accurately reflects the services(s) I performed and decisions made by me. Authenticated by Dr. Doshi on 01/23/2023 10:25:30. Problem List/Past Medical History [...] this refilled. (more content not included)... [facility] Comment on above: Result Comment: Elec tronically Signed By: Earnest DOSHI MD\.br\Date and Time Signed: 01/23/23 10:25 EST\.br\Electronically Co-Signed By: Sofia Lynn.br\Date and Time Co-Signed: 01/23/23 10:22 EST CBC AUTO DIFFon 10-25-2022 BASO # 0.0 103/ul Normal 0.0-0.1 [facility] Comment on above: Performed By: #### C BC #### [facility] [address] [place] [address] Dr. Mary Lou Harmon Basophils/100 WBC (Bld) 0.4 % Normal 0.2-2.0 [facility] Comment on above: Performed By: #### C BC #### [facility] [address] [place] [address] Dr. Mary Lou Harmon EO # 0.1 103/ul Normal 0.0-0.7 [facility] Comment on above: Performed By: #### C BC #### [facility] [address] [address] [address] Mary Lou Harmon Eosinophils/100 WBC (Bld) 1.5 % Normal 0.9-7.0 [facility] Comment on above: Performed By: #### C BC #### [facility] [address] [place] [address] Dr. Mary Lou Harmon Erythrocyte distribution width (RBC) [Ratio] 12.3 % Normal 11.0-15.0 [facility] Comment on above: Performed By: #### C BC #### [facility] [address] [place] [address] Dr. Mary Lou Harmon Hematocrit (Bld) [Volume fraction] 43.7 % Normal 42.0-54.0 [facility] Comment on above: Performed By: #### C BC #### [facility] [address] [place] [address] Dr. Mary Lou Harmon Hemoglobin (Bld) [Mass/Vol] 14.9 g/dL Normal 14.0-18.0 [facility] Comment on above: Performed By: #### C BC #### [facility] [address] [place] [address] Dr. Mary Lou Harmon IG # 0.01 10e3/ul Normal 0.00-0.03 [facility] Comment on above: Performed By: #### C BC #### [facility] [address] [place] [address] Dr. Mary Lou Harmon IG % 0.2 % Normal 0.0-0.5 [facility] Comment on above: Performed By: #### C BC #### [facility] [address] [place] [address] Dr. Mary Lou Harmon LYMPH # 1.6 103/ul Normal 1.2-3.8 [facility] Comment on above: Performed By: #### C BC #### [facility] [address] [place] [address] Dr. Mary Lou Harmon Lymphocytes/100 WBC (Bld) 31.5 % Normal 20.5-60.0 [facility] Comment on above: Performed By: #### C BC #### [facility] [address] [place] [address] Dr. Mary Lou Harmon MANUAL DIFF REQ NO Normal [facility] Comment on above: Performed By: #### C BC #### [facility] [address] [place] [address] Dr. Mary Lou Harmon MCH (RBC) [Entitic mass] 29.7 pg Normal 25.9-34.0 [facility] Comment on above: Performed By: #### C BC #### [facility] [address] [place] [address] Dr. Mary Lou Harmon MCHC (RBC) [Mass/Vol] 34.1 g/dL Normal 29.9-35.2 [facility] Comment on above: Performed By: #### C BC #### [facility] [address] [place] [address] Dr. Mary Lou Harmon MCV (RBC) [Entitic vol] 87.1 fL Normal 80.0-94.0 [facility] Comment on above: Performed By: #### C BC #### [facility] [address] [place] [address] Dr. Mary Lou Harmon MONO # 0.5 103/ul Normal 0.3-0.8 [facility] Comment on above: Performed By: #### C BC #### [facility] [address] [place] [address] Dr. Mary Lou Harmon Monocytes/100 WBC (Bld) 9.6 % Normal 1.7-12.0 [facility] Comment on above: Performed By: #### C BC #### [facility] [address] [place] [address] Dr. Mary Lou Harmon NEUT # 3.0 103/ul Normal 1.4-6.5 [facility] Comment on above: Performed By: #### C BC #### [facility] [address] [place] [address] Dr. Mary Lou Harmon Neutrophils/100 WBC (Bld) 56.8 % Normal 43.0-75.0 [facility] Comment on above: Performed By: #### C BC #### [facility] [address] [place] [address] Dr. Mary Lou Harmon Platelet mean volume (Bld) [Entitic vol] 9.9 fL Normal 9.5-13.5 [facility] Comment on above: Performed By: #### C BC #### [facility] [address] [place] [address] Dr. Mary Lou Harmon PLT 233 103/ul Normal 150-450 [facility] Comment on above: Performed By: #### C BC #### [facility] [address] [place] [address] Dr. Mary Lou Harmon RBC 5.02 106/ul Normal 4.70-6.10 [facility] Comment on above: Performed By: #### C BC #### [facility] [address] [place] [address] Dr. Mary Lou Harmon WBC 5.2 103/ul Normal 4.0-11.0 [facility] Comment on above: Performed By: #### C BC #### [facility] [address] [place] [address] Dr. Mary Lou Harmon CULTURE URINEon 10-25-2022 CULTURE URINE Culture Observations : NO GROWTH. Normal [facility] Comment on above: Performed By: #### U RCX #### [facility] [address] [place] [address] Dr. Mary Lou Harmon FREE T3on 10-25-2022 FREE T3 2.87 pg/mlL Normal 2.18-3.98 [facility] Comment on above: Performed By: #### T SH, CMP, FT3, T4, LIPID #### [facility] [address] [place] [address] Dr. Mary Lou Harmon GLYCOHEMOGLOBIN A1Con 2021 ADA RECOMMENDATION SEE BELOW Normal [facility] Comment on above: Result Comment: ADA RECOMMENDED LIMIT 4.0 - 6.0 ADA THERAPEUTIC TARGET < 7.0 ACTION SUGGESTED > 7.0 Performed By: #### A 1C #### [facility] [address] [place] [address] Dr. Mary Lou Harmon Glucose [Mass/Vol] 103 mg/dL Normal [facility] Comment on above: Performed By: #### A 1C #### [facility] [address] [place] [address] Dr. Mary Lou Harmon HbA1c (Bld) [Mass fraction] 5.2 % Normal 4.5-6.2 [facility] Comment on above: Performed By: #### A 1C #### [facility] [address] [place] [address] Dr. Mary Lou Harmon LIPID PROFILEon 10-25-2022 CHOL-HDL RATIO NORM SEE BELOW Normal [facility] Comment on above: Result Comment: 3.3 - 4.4 LOW RISK 4.4 - 7.1 AVERAGE RISK 7.1 - 11.0 MODERATE RISK >11.0 HIGH RISK Performed By: #### T SH, CMP, FT3, T4, LIPID #### [facility] [address] [place] [address] Dr. Mary Lou Harmon Cholesterol [Mass/Vol] 202 mg/dL Critically high <=200 [facility] Comment on above: Performed By: #### T SH, CMP, FT3, T4, LIPID #### [facility] [address] [place] [address] Dr. Mary Lou Harmon Cholesterol in HDL [Mass/Vol] 57 mg/dL Normal 40-60 [facility] Comment on above: Performed By: #### T SH, CMP, FT3, T4, LIPID #### [facility] [address] [place] [address] Dr. Mary Lou Harmon Cholesterol in LDL [Mass/Vol] 120.8 mg/dL Normal [facility] Comment on above: Performed By: #### T SH, CMP, FT3, T4, LIPID #### [facility] [address] [place] [address] Dr. Mary Lou Harmon Cholesterol.total/Ch olesterol in HDL [Mass ratio] 3.5 {ratio} Normal [facility] Comment on above: Performed By: #### T SH, CMP, FT3, T4, LIPID #### [facility] [address] [place] [address] Dr. Mary Lou Harmon HDL NORMAL > or = 60 mg/dl - LO W CARDIOVASCULAR RISK <40 mg/dl - HIGH CARDIOVASCULAR RISK Normal [facility] Comment on above: Performed By: #### T SH, CMP, FT3, T4, LIPID #### [facility] [address] [place] [address] Dr. Mary Lou Harmon LDL CALC NORMAL SEE BELOW Normal [facility] Comment on above: Result Comment: <100 mg/dl OPTIMAL 100 - 129 mg/dl NEAR OR ABOVE OPTIMAL 130 - 159 mg/dl BORDERLINE HIGH 160 - 189 mg/dl HIGH >190 mg/dl VERY HIGH Performed By: #### T SH, CMP, FT3, T4, LIPID #### [facility] [address] [place] [address] Dr. Mary Lou Harmon Triglyceride [Mass/Vol] 121 mg/dL Normal <=150 [facility] Comment on above: Performed By: #### T SH, CMP, FT3, T4, LIPID #### [facility] [address] [place] [address] Dr. Mary Lou Harmon VLDL CALC 24.2 mg/dL Normal [facility] Comment on above: Performed By: #### T SH, CMP, FT3, T4, LIPID #### [facility] [address] [place] [address] Dr. Mary Lou Harmon MICROALBUMIN, RAND URon 12-0 mALB 3.4 mg/L Normal <=30.0 [facility] Comment on above: Performed By: #### T SH, CMP, FT3, T4, LIPID #### [facility] [facility] [address] [place] [address] Dr. Mary Lou Harmon PROF 14(COMP METB)on 022 Albumin [Mass/Vol] 3.9 g/dL Normal 3.4-5.0 [facility] Comment on above: Performed By: #### T SH, CMP, FT3, T4, LIPID #### [facility] [address] [place] [address] Dr. Mary Lou Harmon Albumin/Globulin [Mass ratio] 0.9 {ratio} Normal [facility] Comment on above: Performed By: #### T SH, CMP, FT3, T4, LIPID #### [facility] [address] [place] [address] Dr. Mary Lou Harmon ALP [Catalytic activity/Vol] 68 U/L Normal 46-116 [facility] Comment on above: Performed By: #### T SH, CMP, FT3, T4, LIPID #### [facility] [address] [place] [address] Dr. Mary Lou Harmon ALT [Catalytic activity/Vol] 30 U/L Normal 16-63 [facility] Comment on above: Performed By: #### T SH, CMP, FT3, T4, LIPID #### [facility] [address] [place] [address] Dr. Mary Lou Harmon Anion gap [Moles/Vol] 7.7 mmol/L Normal [facility] Comment on above: Performed By: #### T SH, CMP, FT3, T4, LIPID #### [facility] [address] [place] [address] Dr. Mary Lou Harmon AST [Catalytic activity/Vol] 20 U/L Normal 15-37 [facility] Comment on above: Performed By: #### T SH, CMP, FT3, T4, LIPID #### [facility] [address] [address] [address] Mary Lou Harmon Bilirubin [Mass/Vol] 0.8 mg/dL Normal 0.2-1.0 [facility] Comment on above: Performed By: #### T SH, CMP, FT3, T4, LIPID #### [facility] [address] [place] [address] Dr. Mary Lou Harmon Calcium [Mass/Vol] 8.9 mg/dL Normal 8.5-10.1 [facility] Comment on above: Performed By: #### T SH, CMP, FT3, T4, LIPID #### [facility] [address] [place] [address] Dr. Mary Lou Harmon Chloride [Moles/Vol] 102 mmol/L Normal 98-107 [facility] Comment on above: Performed By: #### T SH, CMP, FT3, T4, LIPID #### [facility] [address] [place] [address] Dr. Mary Lou Harmon CO2 [Moles/Vol] 29.4 mmol/L Normal 21.0-32.0 [facility] Comment on above: Performed By: #### T SH, CMP, FT3, T4, LIPID #### [facility] [address] [place] [address] Dr. Mary Lou Harmon Creatinine [Mass/Vol] 0.74 mg/dL Normal 0.70-1.30 [facility] Comment on above: Performed By: #### T SH, CMP, FT3, T4, LIPID #### [facility] [address] [place] [address] Dr. Mary Lou Harmon EGFR-AF FRENCH >60 Normal >=60 [facility] Comment on above: Performed By: #### T SH, CMP, FT3, T4, LIPID #### [facility] [address] [place] [address] Dr. Mary Lou Harmon EGFR-NON AF FRENCH >60 Normal >=60 [facility] Comment on above: Performed By: #### T SH, CMP, FT3, T4, LIPID #### [facility] [address] [place] [address] Dr. Mary Lou Harmon Globulin (S) [Mass/Vol] 4.2 g/dL Normal [facility] Comment on above: Performed By: #### T SH, CMP, FT3, T4, LIPID #### [facility] [address] [place] [address] Dr. Mary Lou Harmon Glucose [Mass/Vol] 88 mg/dL Normal 74-106 [facility] Comment on above: Performed By: #### T SH, CMP, FT3, T4, LIPID #### [facility] [address] [place] [address] Dr. Mary Lou Harmon Potassium [Moles/Vol] 4.1 mmol/L Normal 3.5-5.1 [facility] Comment on above: Performed By: #### T SH, CMP, FT3, T4, LIPID #### [facility] [address] [place] [address] Dr. Mary Lou Harmon Protein [Mass/Vol] 8.1 g/dL Normal 6.4-8.2 [facility] Comment on above: Performed By: #### T SH, CMP, FT3, T4, LIPID #### [facility] [address] [place] [address] Dr. Mary Lou Harmon Sodium [Moles/Vol] 135 mmol/L Critically low 136-145 [facility] Comment on above: Performed By: #### T SH, CMP, FT3, T4, LIPID #### [facility] [address] [place] [address] Dr. Mary Lou Harmon Urea nitrogen [Mass/Vol] 11.0 mg/dL Normal 7.0-18.0 [facility] Comment on above: Performed By: #### T SH, CMP, FT3, T4, LIPID #### [facility] [address] [place] [address] Dr. Mary Lou Harmon Urea nitrogen/Creatinine [Mass ratio] 14.9 mg/mg Normal [facility] Comment on above: Performed By: #### T SH, CMP, FT3, T4, LIPID #### [facility] [address] [place] [address] Dr. Mary Lou Hamron T4on 10-25-2022 T4 [Mass/Vol] 8.00 ug/dL Normal 4.50-12.10 [facility] Comment on above: Performed By: #### T SH, CMP, FT3, T4, LIPID #### [facility] [address] [place] [address] Dr. Mary Lou Harmon TSHon 10-25-2022 TSH 1.358 uIU/mL Normal 0.358-3.740 [facility] Comment on above: Performed By: #### T SH, CMP, FT3, T4, LIPID #### [facility] [address] [place] [address] Dr. Mary Lou Harmon UA RANDOM W/MICROSCOPICon AMORPHOUS CRYSTALS FEW Normal [facility] Comment on above: Performed By: #### T SH, CMP, FT3, T4, LIPID #### [facility] [address] [place] [address] Dr. Mary Lou Harmon BACTERIA NONE SEEN Normal NONE SEEN [facility] Comment on above: Performed By: #### T SH, CMP, FT3, T4, LIPID #### [facility] [address] [place] [address] Dr. Mary Lou Harmon Bilirubin Ql (U) Negative Normal NEGATIVE [facility] Comment on above: Performed By: #### T SH, CMP, FT3, T4, LIPID #### [facility] [address] [place] [address] Dr. Mary Lou Harmon CAST NONE SEEN Normal NONE SEEN [facility] Comment on above: Performed By: #### T SH, CMP, FT3, T4, LIPID #### [facility] [address] [place] [address] Dr. Mary Lou Harmon Clarity (U) CLEAR Normal CLEAR [facility] Comment on above: Performed By: #### T SH, CMP, FT3, T4, LIPID #### [facility] [address] [place] [address] Dr. Mary Lou Harmon Color (U) YELLOW Normal YELLOW [facility] Comment on above: Performed By: #### T SH, CMP, FT3, T4, LIPID #### [facility] [address] [address] [address] Mary Lou Harmon Crystals LM Nom (Urine sed) SEEN Abnormal NONE SEEN [facility] Comment on above: Performed By: #### T SH, CMP, FT3, T4, LIPID #### [facility] [address] [place] [address] Dr. Mary Lou Harmon Epithelial cells LM Ql (Urine sed) FEW Abnormal NONE SEEN /RARE [facility] Comment on above: Performed By: #### T SH, CMP, FT3, T4, LIPID #### [facility] [address] [place] [address] Dr. Mary Lou Harmon Glucose Ql (U) Negative Normal NEGATIVE [facility] Comment on above: Performed By: #### T SH, CMP, FT3, T4, LIPID #### [facility] [address] [place] [address] Dr. Mary Lou Harmon Hemoglobin Ql (U) Negative Normal NEGATIVE [facility] Comment on above: Performed By: #### T SH, CMP, FT3, T4, LIPID #### [facility] [address] [place] [address] Dr. Mary Lou Harmon Ketones Ql (U) Negative Normal NEGATIVE [facility] Comment on above: Performed By: #### T SH, CMP, FT3, T4, LIPID #### [facility] [address] [address] [address] Mary Lou Harmon LEUKOCYTES Negative Normal NEGATIVE [facility] Comment on above: Performed By: #### T SH, CMP, FT3, T4, LIPID #### [facility] [address] [place] [address] Dr. Mary Lou Harmon MUCOUS SMALL Abnormal NONE SEEN [facility] Comment on above: Performed By: #### T SH, CMP, FT3, T4, LIPID #### [facility] [address] [address] [address] Mary Lou Harmon Nitrite Ql (U) Negative Normal NEGATIVE [facility] Comment on above: Performed By: #### T SH, CMP, FT3, T4, LIPID #### [facility] [address] [address] [address] Mary Lou Harmon pH (U) 7.5 [pH] Normal 5-9 [facility] Comment on above: Performed By: #### T SH, CMP, FT3, T4, LIPID #### [facility] [address] [address] [address] Mary Lou Harmon RBC NONE SEEN Abnormal 0-2 [facility] Comment on above: Performed By: #### T SH, CMP, FT3, T4, LIPID #### [facility] [address] [place] [address] Dr. Mary Lou Harmon SPEC GRAVITY 1.020 Normal 1.005-<=1.025 [facility] Comment on above: Performed By: #### T SH, CMP, FT3, T4, LIPID #### [facility] [address] [address] [address] Mary Lou Harmon UA PROTEIN Negative Normal NEGATIVE/ TRACE [facility] Comment on above: Performed By: #### T SH, CMP, FT3, T4, LIPID #### [facility] [address] [address] [address] Mary Lou Harmon Urobilinogen Qn (U) 0.2 {Guru'U}/dL Normal 0.2 - 1. 0 [facility] Comment on above: Performed By: #### T SH, CMP, FT3, T4, LIPID #### [facility] [address] [place] [address] Dr. Mary Lou Harmon WBC NONE SEEN Normal NONE SEEN [facility] Comment on above: Performed By: #### T SH, CMP, FT3, T4, LIPID #### [facility] [address] [place] [address] Dr. Mary Lou Harmon VITAMIN D 25 OHon 10-25-2022 VIT D 25-OH 16.6 ng/mL Normal [facility] Comment on above: Performed By: #### V ITAD #### [facility] [address], [place] [address] Dr. Mary Lou Harmon VIT D RANGES SEE BELOW Normal [facility] Comment on above: Result Comment: <20 ng/mL Vit D deficient 20 - <30 ng/mL Vit D insufficient 30 - 100 ng/mL Vit D sufficient >100 ng/mL Potential Toxicity Performed By: #### V ITAD #### [facility] [address], [place] [address] Dr. Mary Lou Harmon Formson 10-22-2022 Forms [id number] D:127 Normal [facility] Historical Records Officeon 10-22-2022 Historical Records Office [id number]#[id number] :127 Normal [facility] Physician Referralon 022 Physician Referral [id number] :127 Normal [facility] Ambulatory Visit Summaryon 1 12-21-2021 Ambulatory Visit Summary ANNA CAN :1980 Visit Date:10/21/2022 Ambulatory Visit Instructions Your Diagnosis BPH (benign prostatic hyperplasia) Proteinuria Incomplete bladder emptying Tests Performed Urnls Dip Stick Auto w/o Microscopy POC 55658 Your Care Team Attending Physician - Earnest [...] Earnest DOSHI MD Where: [facility] Patient Educationon 11-29-20 22 Patient Education Urology Benign Prostatic Hyperplasia Benign [...] Follow these instructions at home: ? Take qlnl-mqp-gatnujf and prescription medicines only as told by [...] d (more content not included)... Normal [facility] Urology Office/Clinic Noteon 10-21-2022 Urology Office/Clinic Note [...] URL [facility] [address] [place] [address]- Additional Instructions: F/u 3 mos, no labs Patient Education Benign Prostatic Hyperplasia I, Madeline Valente, personally scribed for Dr. Doshi on 10/21/2022 10:03:31. . Documentation recorded by the scribe, Madeline Valente, accurately reflects the services(s) I performed and decisions made by me. Authenticated by Dr. Doshi on 10/21/2022 10:04:45. Problem List/Past Medical History Ongoing BPH (benign prostatic hyperplasia) Incomplete bladder emptying Proteinuria Historical No qualifying data Medications Adipex-P, Oral, Daily Suboxone, SubLingual, Daily Allergie (more content not included)... Normal [facility] Comment on above: Result Comment: Elec tronically Signed By: Earnest DOSHI MD\.br\Date and Time Signed: 10/21/22 10:04 EST\.br\Electronically Co-Signed By: Madeline Valente\.br\Date and Time Co-Signed: 10/21/22 10:03 EST [facility]on SARS-CoV-2 (COVID-19) RNA ANUJA+probe Ql (Unsp spec) Detected Critically abnormal NOT DETECTED [facility] Comment on above: Result Comment: This test is not yet approved or cleared by the [place] FDA. When there are no FDA-approved or cleared tests available, and other criteria are met, FDA can make tests available under an emergency access mechanism called an Emergency Use Authorization (EUA). The EUA for this test is supported by the [place] of Health and Human Service's declaration that [...] longer be used). Performed By: #### [facility] #### [facility] [address] [address] [address] Mary Lou Harmon Vital Signs Date Time Vital Sign Value Performing Clinician Wesley borja 08-17-2023 16:25-0400 Blood Pressure Location Earnest DOSHI [facility] 08-17-2023 16:25-0400 Diastolic blood pressure 82 mm[Hg] Earnest DOSHI [facility] 08-17-2023 16:25-0400 Heart rate 63 /min Earnest DOSHI [facility] 08-17-2023 16:25-0400 Respiratory rate 16 /min Earnest DOSHI [facility] 08-17-2023 16:25-0400 Systolic blood pressure 138 mm[Hg] Earnest DOSHI [facility] 01-23-2023 09:12-0500 Blood Pressure Location Earnest DOSHI [facility] 01-23-2023 09:12-0500 Diastolic blood pressure 88 mm[Hg] Earnest DOSHI [facility] 01-23-2023 09:12-0500 Heart rate 80 /min Earnest DOSHI [facility] 01-23-2023 09:12-0500 Respiratory rate 16 /min Earnest DOSHI [facility] 01-23-2023 09:12-0500 Systolic blood pressure 140 mm[Hg] Earnest DOSHI [facility] 10-21-2022 09:00-0500 Blood Pressure Location Earnest DOSHI [facility] 10-21-2022 09:00-0500 Diastolic blood pressure 102 mm[Hg] Earnest DOSHI [facility] 10-21-2022 09:00-0500 Heart rate 102 /min Earnest DOSHI [facility] 10-21-2022 09:00-0500 Systolic blood pressure 151 mm[Hg] Earnest DOSHI [facility] Encounters Encounter Date Encounter Type Care Provider Facility Start: 08-17-2023 End: 08-18-2023 ambulatory Earnest DOSHI Facility:[facility] Start: 08-17-2023 End: 08-17-2023 [facility] encounter [facility] Start: 06-15-2023 End: 06-16-2023 ambulatory Earnest DOSHI Facility:[facility] [place] Start: 06-11-2023 End: 06-12-2023 ambulatory Earnest DOSHI Facility:CD:[id number] Start: 05-22-2023 End: 05-23-2023 ambulatory Earnestgisel DOSHI Facility:[facility] [place] Start: 05-21-2023 End: 05-22-2023 ambulatory Earnestgisel DOSHI Facility:[facility] [place] [place] Start: 01-23-2023 End: 01-24-2023 ambulatory Earnestgisel DOSHI Facility:[facility] [place] [place] Start: 01-23-2023 End: 01-23-2023 Lab Drop off Earnest DOSHI [facility] Start: 01-23-2023 End: 01-24-2023 ambulatory Earnest DOSHI Facility:[facility] [place] Start: 01-23-2023 End: 03-04-2023 Pre-admission assessment Earnest DOSHI [facility] Start: 01-23-2023 End: 01-23-2023 Patient encounter procedure Earnest DOSHI [facility] [place] Start: 10-25-2022 End: 10-26-[address] MARLENY CUNNINGHAM Facility:[facility] Start: 10-21-2022 End: 10-22-2022 ambulatory Earnest Brandyn DOSHI Facility:[facility] [place] Start: 10-21-2022 End: 10-21-2022 Patient encounter procedure Earnest DOSHI [facility] [place] Start: 10-20-2022 ambulatory Earnest ERNESTINE Facility :[facility] [place] Start: 05-27-2022 End: 05-27-[address] MARLENY CUNNINGHAM Facility:[facility] Procedures Date Procedure Procedure Detail Performing Clinician Start: 06-11-2023 Cystoscopy Earnest ECHAVARRIA Start: 02-07-2010 Cystoscopy Earnest ECHAVARRIA Payers Date Payer Category Payer Unknown [id number] 2.16.84 [id number] 1980 Unknown [id number] 2.16.84 [id number] 1980 Unknown [id number] 2.16.8 [id number] 1980 Unknown [id number] 2.16.8 [id number] 1980 Unknown [id number] 2.16.8 [id number] 1980 Unknown [id number] 2.16.8 [id number] 1980 Unknown [id number] 2.16.8 [id number] 1980 Unknown [id number] 2.16.8 [id number] 1980 Unknown [id number] 2.16.8 [id number] 1980 Unknown [id number] 2.16.8 [id number] 1980 Unknown [id number] 2.16.8 [id number] 1957 Unknown [id number] Social History Date Type Detail Facility Start: 10-21-2022 Tobacco smoking status Never s moked tobacco (finding) [facility] Tobacco smoking status Never [facility] Sex Assigned At Male [facility] Functional Status Date Assessment Result Facility 08-17-2023 Functional Status N/A [facility] 01-23-2023 Functional Status N/A [facility] 10-21-2022 Functional Status N/A [facility] Hospital Discharge instructions 08-17-2023 Note Date & [...] including vitamins, herbs, eye drops, creams, and nezd-qzh-zrdvulu medicines. Any problems you or family members [...] provider tells you to take them. Taking wuhd-apa-saibthr medicines, vitamins, herbs, and supplements. Tests You [...] provider. Document Revised: 12/13/2020 Document Reviewed: 05/14/2020 [employer] Patient Education 2022 [employer] Follow Up Care 06/15/2023 09:36:52 With:ERNESTINE HEARD, Earnest Ahumada, URL Address: [facility] [address] [place] [phone] When: Unknown [facility] History and physical note 06-04-2023 Note Date & Type Note Facility 06-04-2023 Note [id number] #1.00CD:[address] [facility] Discharge instructions 01-23-2023 Note Date & [...] urethra. Follow these instructions at home: Take gkby-ddv-odouple and prescription medicines only as told by [...] 11/09/2006 Document Revised: 10/04/2019 Document Reviewed: 12/14/2017 [employer] Patient Education 2019 [employer]. Follow Up Care 10/21/2022 10:04:40 With:ERNESTINE HEARD, Earnest Ahumada, URL Address: [address] [place] [id number]- When: Unknown [facility] Hospital Discharge instructions 10-21-2022 Note Date & Type Note Facility 10-21-2022 [...] urethra. Follow these instructions at home: Take pofq-qtd-rzbdcgw and prescription medicines only as told by [...] 11/09/2006 Document Revised: 10/04/2019 Document Reviewed: 12/14/2017 [employer] Patient Education 2020 [employer]. Follow Up Care 10/20/2022 11:29:00 With:Earnest DOSHI MD, URL Address: [facility] [address] , [place] [address]- When: Unknown [facility] Evaluation + Plan note Note Date & Type Note Facility Evaluation + Plan note Future Appointments Appointment Date:01/23/2023 09:15:00 AM Scheduled Provider:Earnest DOSHI MD Location:[facility] [place] Appointment Type:URO Office Visit [facility] Evaluation + Plan note Note Date & Type Note Facility Evaluation + Plan note Future Appointments Appointment Date:02/24/2023 10:30:00 AM Scheduled Provider: Location:[facility] Appointment Type:Urology CALL PAT FT Appointment Date:03/03/2023 03:00:00 PM Scheduled Provider: Location:[facility] Appointment Type:Urology FT [facility] Hospital course Narrative Note Date & Type Note Facility Hospital course Narrative No data available for this section [facility] Hospital Discharge instructions Note Date & Type Note Facility Hospital Discharge instructions No data available for this section [facility] Progress note Note Date & Type Note Facility Progress note No data available for this section [facility] Summary Purpose Family History No Family History Records FoundNo Family History Records Found Advance Directives No Advanced Directives Records FoundNo Advanced Directives Records Found Additional Source Comments Patient Care team informatio n (unrecognized section and content) Personnel Name: Marleny Cunningham MD Address: Address: [address] [place] [address] Personnel Name: Marleny Cunningham MD Address: Address: [address] [place] [address] Personnel Name: Marleny Cunningham MD Address: Address: [address] [place] [address] Personnel Name: Marleny Cunningham MD Address: Address: [address] [place] [address] Personnel Name: Marleny Cunningham MD Address: Address: [address] [place] [address] (unrecognized sect ion and content) No Status Records FoundNo Status Records Found INFORMATION SOURCE (unrecogn ized section and content) DATE CREATED AUTHOR 11/01/2022 [facility] DATE CREATED AUTHOR AUTHOR'S ROLOIZ ATAYAZ 08/24/2023 [facility] FOR RECORDS PERTAINING TO PATIENTS WHO ARE [...] BE BASED ON THE PRIMARY CLINICAL RECORDS. [facility] [employer] [facility]. provides no warranty or guarantee of the accuracy or completeness of information in this document.
== END 2024-04-27 15:45 | disposition home or self-care (01) ==
LOC: US 15:45
PROVIDERS: PCP Family Medicine; Visit Provider Family Medicine
DX: L03.90 Cellulitis, unspecified (principal); R60.9 Edema, unspecified
CPT/HCPCS: 93971